=== PATIENT | female | born 1945 | race Two or more races ===

== ENCOUNTER → 2018-05-22 | Day surgery (SDC) | payer OTHER ==
[2018-05-19 12:59] LABS: Basophils # (auto) 0 uL; Basophils % (auto) 0.5 % (0.0-2.0); Eosinophils # (auto) 0.2 uL; Eosinophils % (auto) 2.1 % (0.0-7.0); Hematocrit 44.3 % (36.0-46.0); Hemoglobin 14.4 g/dL (12.2-16.2); Lymphocytes # (auto) 2.6 uL; Lymphocytes % (auto) 32.5 % (10.0-50.0); Mean Corpuscular Hemoglobin 29.8 pg (28.0-32.0); Mean Corpuscular Hgb Conc. 32.5 g/dL (32.0-36.0); Mean Corpuscular Volume 91.7 fL (80.0-100.0); Monocytes # (auto) 0.5 uL; Monocytes % (auto) 6.3 % (0.0-12.0); Neutrophils # (auto) 4.6 uL; Neutrophils % (auto) 58.6 % (37.0-80.0); Platelet Count (auto) 271 10^3/uL (140-450); Red Blood Cells 4.83 10^6/uL (4.0-5.20); Red Cell Distribution Width 13.2 % (11.8-14.3); White Blood Cell 7.9 10^3/uL (4.4-10.8)
[2018-05-19 13:12] LABS: INR 1.03 (0.9-1.15); Partial Thromboplastin Time 31.3 sec (23.78-33.04)
[~2018-05-22] VITALS: Ht 157.5 cm; Wt 81.6 kg
[~2018-05-22] MED LIST: ASPI81TA27 PO; GLIM2TAB33 PO; IBUP1POW8; LEVO25TA6 PO; LISIPOW; LOSA100T25 PO; LOVA20TA4 PO; METF-929 PO; METFORMIN; SODIUM CHLORIDE LOCK 10 ML ONE; diphenhdrAMINE HCL 50 MG/1 ML VL ONE; fentaNYL CITRATE 100 MCG/2 ML VL ONE
[2018-05-22] MEDS: MIDAZOLAM HCL 5 MG/ML-1ML VIAL ONE ×2 (09:47→09:53)
[2018-05-22 10:35] VITALS: BP 137/63
== END | disposition home or self-care (01) ==
LOC: MERGE 08:42 → GI 08:42
PROVIDERS: ATTEND Internal Medicine Gastroenterology
DX: Z12.11 Encounter for screening for malignant neoplasm of colon (principal); K57.30 Diverticulosis of large intestine without perforation or abscess without bleeding; K64.8 Other hemorrhoids; E11.9 Type 2 diabetes mellitus without complications; E66.9 Obesity, unspecified; Z88.5 Allergy status to narcotic agent; Z68.32 Body mass index [BMI] 32.0-32.9, adult; Z87.891 Personal history of nicotine dependence; Z90.49 Acquired absence of other specified parts of digestive tract; Z98.890 Other specified postprocedural states; Z79.899 Other long term (current) drug therapy
CPT/HCPCS: 36415; 45378; 82962; 85025; 85610; 85730; J1200; J2250; J3010; 99152

== ENCOUNTER → 2018-07-26 | Outpatient (CLI) | payer OTHER, MEDICAID ==
[~2018-07-26] MED LIST changes: -SODIUM CHLORIDE LOCK 10 ML ONE; -diphenhdrAMINE HCL 50 MG/1 ML VL ONE; -fentaNYL CITRATE 100 MCG/2 ML VL ONE
== END | disposition home or self-care (01) ==
LOC: LAB 20:32
PROVIDERS: ATTEND Nurse Practitioner Family
DX: N39.0 Urinary tract infection, site not specified (principal)
CPT/HCPCS: 87086

== ENCOUNTER → 2018-08-04 | Outpatient (CLI) | payer OTHER, MEDICAID ==
[2018-08-04 15:13] LABS: Urine Bacteria FEW /hpf (None Seen); Urine Blood 1+ /uL (Negative); Urine Mucus FEW (None Seen); Urine Specific Gravity 1.017 (1.001-1.035); Urine WBC 28 /hpf (0 - 5)
== END | disposition home or self-care (01) ==
LOC: LAB 14:25
PROVIDERS: ATTEND Internal Medicine
DX: E11.9 Type 2 diabetes mellitus without complications (principal)
CPT/HCPCS: 36415; 81001; 83036

== ENCOUNTER → 2018-09-10 | Outpatient (CLI) | payer OTHER, MEDICAID ==
[~2018-09-10] MED LIST changes: +ASPI-404 PO; -ASPI81TA27 PO
[2018-09-10 13:58] LABS: Urine Bacteria FEW /hpf (None Seen); Urine Blood 1+ /uL (Negative); Urine Budding Yeast OCCASIONAL /hpf (None Seen); Urine Specific Gravity 1.019 (1.001-1.035); Urine WBC 2 /hpf (0 - 5)
== END | disposition home or self-care (01) ==
LOC: LAB 13:26
PROVIDERS: ATTEND Urology
DX: N39.0 Urinary tract infection, site not specified (principal)
CPT/HCPCS: 81001; 87086

== ENCOUNTER → 2018-11-16 | Outpatient (CLI) | payer OTHER ==
[2018-11-16 12:28] LABS: Albumin 3.9 g/dL (3.4-5.0); Calcium 8.8 mg/dL (8.5-10.1); Potassium 3.9 mmol/L (3.5-5.1)
[2018-11-16 12:34] LABS: BUN/Creatinine Ratio 23.2; Bilirubin, Total 0.5 mg/dL (0.2-1.0)
== END | disposition home or self-care (01) ==
LOC: LAB 11:17
PROVIDERS: ATTEND Internal Medicine
DX: E03.9 Hypothyroidism, unspecified (principal); E11.9 Type 2 diabetes mellitus without complications
CPT/HCPCS: 36415; 80053; 83036; 84439; 84443

== ENCOUNTER 2019-03-15 17:19 | Inpatient (IN) | payer OTHER ==
[~2019-03-15] VITALS: Ht 154.9 cm; Wt 85.6 kg
[2019-03-15] MEDS ORDERED: methylPREDNISolone SOD SUCC 125 MG/2 ML VL IV ONE (17:30)
[2019-03-15] MEDS ORDERED: FAMOTIDINE 20 MG TAB PO ONE (17:30)
--- NOTE | 2019-03-15 17:32 | NUR ---
Direct Admit Note USAMA LOVE admitted to Telemetry/MS unit as a direct admit per MD order. Patient oriented to primary RN, unit, room, bed, and unit policies regarding patient care and visiting hours. Patient now on continuous telemetry monitoring, tele box # 11. Patient weighed by bedscale and encouraged to call if they need something. All questions and concerns addressed, patient verbalized understanding.
[2019-03-15 18:01] VITALS: BP 147/78
--- NOTE | 2019-03-15 18:20 | NUR ---
IV insertion IV access obtained (by resource RN), via clean sterile technique by inserting 20 gauge catheter at left forearm after 2 attempt(s). IV secured properly. No trauma to site. Patient tolerated well.
[2019-03-15] MEDS: LEVOFLOXACIN 750MG 150 ML IV SCH (18:36)
[2019-03-15] MEDS: ALBUTEROL SULF 2.5 MG/0.5ML(0.5%) NEB SOLN NEB SCH ×2 (18:43→22:01)
--- NOTE | 2019-03-15 19:05 | NUR ---
OPENING NOTE- NOC SHIFT PATIENT IS ALERT AND ORIENTED X4. NO S/SX OF DISTRESS OR SOB. PATIENT DENIES PAIN AT THIS TIME. WILL CONTINUE TO MONITOR Q1H AND PRN. DISCUSSED POC WITH PATIENT AND INSTRUCTED PATIENT TO CALL PRN; PATIENT VERBALIZED UNDERSTANDING. WILL CONTINUE TO MONITOR Q1H AND PRN.
[2019-03-15 19:12] LABS: Basophils # (auto) 0 uL; Basophils % (auto) 0.6 % (0.0-2.0); Eosinophils # (auto) 0.3 uL; Eosinophils % (auto) 3.5 % (0.0-7.0); Hematocrit 39.5 % (36.0-46.0); Hemoglobin 12.9 g/dL (12.2-16.2); Lymphocytes # (auto) 2.5 uL; Lymphocytes % (auto) 31.8 % (10.0-50.0); Mean Corpuscular Hemoglobin 29.8 pg (28.0-32.0); Mean Corpuscular Hgb Conc. 32.8 g/dL (32.0-36.0); Monocytes # (auto) 0.5 uL; Monocytes % (auto) 6.1 % (0.0-12.0); Neutrophils # (auto) 4.6 uL; Platelet Count (auto) 235 10^3/uL (140-450); Red Blood Cells 4.34 10^6/uL (4.0-5.20); Red Cell Distribution Width 12.8 % (11.8-14.3); White Blood Cell 7.9 10^3/uL (4.4-10.8)
[2019-03-15 19:24] LABS: Albumin 3.7 g/dL (3.4-5.0); Calcium 8.4 mg/dL (8.5-10.1); Potassium 3.5 mmol/L (3.5-5.1)
[2019-03-15 19:28] LABS: BUN/Creatinine Ratio 21.1; Bilirubin, Total 0.2 mg/dL (0.2-1.0); Total Protein 7.7 g/dL (6.4-8.2)
[2019-03-15] MEDS: IPRATROPIUM BROM 0.5 MG/2.5ML INH SOL NEB PRN (22:01)
[2019-03-15] MEDS: ACCU-CHEK COMFORT CURVE STRIP VI SCH (22:29)
[2019-03-15] MEDS: methylPREDNISolone SOD SUCC 40 MG/ML VL IV SCH (22:29)
[2019-03-15 23:47] VITALS: BP 154/79
[2019-03-16 01:20] VITALS: BP 154/79
[2019-03-16] MEDS: ALBUTEROL SULF 2.5 MG/0.5ML(0.5%) NEB SOLN NEB SCH ×6 (02:00→22:20)
[2019-03-16] MEDS: IPRATROPIUM BROM 0.5 MG/2.5ML INH SOL NEB PRN ×2 (03:46→11:23)
[2019-03-16 05:56] VITALS: BP 126/52
[2019-03-16] MEDS: methylPREDNISolone SOD SUCC 40 MG/ML VL IV SCH ×3 (06:46→21:30)
--- NOTE | 2019-03-16 07:32 | NUR ---
ENDORSED PATIENT CARE TO DAY SHIFT NURSE GUSTAVO PHIPPS. NO S/SX OF DISTRESS OR SOB.
[2019-03-16] MEDS ORDERED: GLIMEPIRIDE 2 MG TAB PO SCH (08:00)
--- NOTE | 2019-03-16 08:00 | NUR ---
Opening Shift Note Assumed care of patient, awake and alert. No S/S of distress/SOB or pain. Instructed on POC and to call for assist PRN, will continue to monitor for changes Q1hr and PRN.
[2019-03-16 09:00] VITALS: BP 159/86
[2019-03-16] MEDS: VALSARTAN 80 MG TAB PO SCH (09:56)
[2019-03-16] MEDS: FAMOTIDINE 20 MG TAB PO SCH (09:56)
[2019-03-16] MEDS: ACCU-CHEK COMFORT CURVE STRIP VI SCH ×2 (11:15→21:31)
[2019-03-16 13:00] VITALS: BP 128/69
[2019-03-16] MEDS: IPRATROPIUM BROM 0.5 MG/2.5ML INH SOL NEB SCH ×3 (15:10→22:20)
--- NOTE | 2019-03-16 16:27 | NUR ---
Assessment Pt is a 74 yr old alert and oriented female. Prior to admit, pt lived with , Ricardo, who is her emergency contact at [phone]. Pt ambulates with a walker but was other donahue independent with ADL's prior to admit. Pt's Primary is Dr. cisneros, has no AD on file, and gets [employer] income. Pt stated that she feels safe to d/c home with and helps take care of him. Pt's can transport home. No needs assessed. Addendum: 03/16/19 at 1632 by ISA JAIMES Amended: Links added.
[2019-03-16] MEDS: guaiFENesin-DM 100/10mg/5ml SYR PO PRN (16:31)
[2019-03-16 17:00] VITALS: BP 141/76
[2019-03-16] MEDS: metFORMIN HYDROCHLORIDE 500 MG TAB PO SCH (17:50)
[2019-03-16] MEDS: LEVOFLOXACIN 750MG 150 ML IV SCH (17:50)
[2019-03-16] MEDS: ACETYLCYSTEINE 10 %(100MG/ML) SOL 4ML NEB SCH (18:48)
[2019-03-16] MEDS: BUDESONIDE (INHALATION) 0.5 MG/2 ML NEB NEB SCH (18:48)
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
[2019-03-16 21:52] VITALS: BP 129/67
[2019-03-17] MEDS: ALBUTEROL SULF 2.5 MG/0.5ML(0.5%) NEB SOLN NEB SCH ×6 (01:07→22:06)
[2019-03-17] MEDS: IPRATROPIUM BROM 0.5 MG/2.5ML INH SOL NEB SCH ×6 (01:07→22:06)
[2019-03-17 04:58] VITALS: BP 135/88
[2019-03-17] MEDS ORDERED: ACETYLCYSTEINE 20%(200MG/ML) SOL 4ML ONE (05:36)
[2019-03-17] MEDS: ACETYLCYSTEINE 10 %(100MG/ML) SOL 4ML NEB SCH ×3 (06:02→22:06)
[2019-03-17] MEDS: methylPREDNISolone SOD SUCC 40 MG/ML VL IV SCH ×2 (06:23→18:11)
[2019-03-17] MEDS: GLIMEPIRIDE 2 MG TAB PO SCH (06:24)
--- NOTE | 2019-03-17 06:53 | NUR ---
CLOSING NOTE- NOC SHIFT PATIENT IS COMFORTABLE IN BED. NO S/SX OF DISTRESS OR SOB. PATIENT DENIES PAIN AT THIS TIME. WILL ENDORSE PATIENT CARE TO DAY SHIFT RN.
[2019-03-17] MEDS: metFORMIN HYDROCHLORIDE 500 MG TAB PO SCH ×2 (08:08→18:11)
[2019-03-17] MEDS: FAMOTIDINE 20 MG TAB PO SCH (09:22)
[2019-03-17] MEDS: VALSARTAN 80 MG TAB PO SCH (09:23)
[2019-03-17] MEDS: ACCU-CHEK COMFORT CURVE STRIP VI SCH ×2 (09:26→23:14)
[2019-03-17] MEDS: ACETAMINOPHEN 325 MG TAB PO PRN ×2 (10:16→20:06)
[2019-03-17] MEDS: BUDESONIDE (INHALATION) 0.5 MG/2 ML NEB NEB SCH ×2 (10:39→18:34)
[2019-03-17] MEDS: guaiFENesin-DM 100/10mg/5ml SYR PO PRN (12:44)
--- NOTE | 2019-03-17 12:50 | NUR ---
Patient complained of left upper chest sharp pain. EKG done. Will consult the results to Dr. Davidson.
[2019-03-17 13:00] VITALS: BP 137/66
--- NOTE | 2019-03-17 16:31 | NUR ---
Troponin-0.293, Dr. Davidson paged and returned call. Orders received.
[2019-03-17] MEDS ORDERED: ASPirin 81 mg TAB PO ONE (16:45)
[2019-03-17] MEDS: LEVOFLOXACIN 750MG 150 ML IV SCH (16:45)
--- NOTE | 2019-03-17 18:30 | NUR ---
IV removal IV infiltrated on left forearm. IV DC'd with clean sterile technique, catheter fully intact. Pressure dressing applied to site. Patient tolerated well.
--- NOTE | 2019-03-17 18:37 | NUR ---
RT NOTE PT WAS SEEN BY RT FOR HHN TX. PT TOLERATES WELL VIA MASK. NO ADVERSE REACTION NOTED. CONT ORDERED Addendum: 03/17/19 at 1838 by Skylar Moon RT Amended: Links added.
--- NOTE | 2019-03-17 18:46 | NUR ---
IV insertion IV access obtained, via clean sterile technique by inserting 20 gauge catheter at right forearm after one attempt. IV secured properly. No trauma to site. Patient tolerated well.
--- NOTE | 2019-03-17 19:30 | NUR ---
OPENING SHIFT NOTE Assumed care of patient awake and alert x4. Patient is complaining of pain to right knee due to her arthritis (pain scale 4/10), will medicate patient as ordered by MD. Instructed on plan of care and to call for assistance as needed, patient verbalized understanding. Bed is locked in lowest position, side rails x 2 are up, call light is within reach, and bed alarm is on.
[2019-03-17] MEDS: METOPROLOL TARTRATE 25 MG TAB PO SCH (21:23)
[2019-03-17] MEDS: ATORVASTATIN 20 MG TAB PO SCH (21:23)
[2019-03-17 21:51] VITALS: BP 137/73
--- NOTE | 2019-03-17 22:09 | NUR ---
RT NOTE PT WAS SEEN BY RT FOR HHN TX. PT TOLERATES WELL VIA MASK. NO ADVERSE REACTION NOTED. CONT ORDERED Addendum: 03/17/19 at 2227 by Skylar Moon RT Amended: Links added.
--- NOTE | 2019-03-18 01:53 | NUR ---
HOSPITALIST PAGED RE: CRITICAL TROPONIN LAB VALUE Hospitalist paged regarding critical troponin lab value: 0.567. Patient has a cardiology consult pending for chest pain/elevated troponin. Patient denies chest pain at this time. Awaiting call back.
--- NOTE | 2019-03-18 02:10 | NUR ---
RT NOTE PT WAS SEEN BY RT FOR HHN TX. PT TOLERATES WELL VIA MASK. NO ADVERSE REACTION NOTED. CONT ORDERED Addendum: 03/18/19 at 0222 by Skylar Moon RT Amended: Links added.
[2019-03-18] MEDS: IPRATROPIUM BROM 0.5 MG/2.5ML INH SOL NEB SCH ×6 (02:14→22:15)
[2019-03-18] MEDS: ALBUTEROL SULF 2.5 MG/0.5ML(0.5%) NEB SOLN NEB SCH ×6 (02:14→22:15)
[2019-03-18 05:00] VITALS: BP 139/69
--- NOTE | 2019-03-18 05:09 | NUR ---
HOSPITALIST RETURNED CALL RE: CRITICAL TROPONIN LAB VALUE Notified DINAH Ratliff of patient's critical troponin lab value: 0.567. DINAH Colunga aware that patient has a cardiac consult pending for chest pain and elevated troponin. No new orders received at this time.
[2019-03-18] MEDS: methylPREDNISolone SOD SUCC 40 MG/ML VL IV SCH ×2 (06:09→18:00)
[2019-03-18] MEDS: GLIMEPIRIDE 2 MG TAB PO SCH (06:09)
[2019-03-18] MEDS: guaiFENesin-DM 100/10mg/5ml SYR PO PRN (06:09)
[2019-03-18] MEDS: ACETYLCYSTEINE 10 %(100MG/ML) SOL 4ML NEB SCH ×3 (06:30→22:15)
[2019-03-18 08:00] VITALS: BP 124/60
--- NOTE | 2019-03-18 08:00 | NUR ---
ASSESSMENT NOTE PT IS ALERT ORIENTED X4, RESTING IN BED COMFORTABLY, NO DISTRESS NOTED, ABLE TO VERBALIS HER NEEDS, SELF REPOSITION NEEDED, PAIN 0/10 AT THIS TIME, CALL LIGHT WITHIN REACH
[2019-03-18] MEDS: FAMOTIDINE 20 MG TAB PO SCH (08:58)
[2019-03-18] MEDS: metFORMIN HYDROCHLORIDE 500 MG TAB PO SCH ×2 (08:58→17:50)
[2019-03-18] MEDS: ASPirin 81 mg TAB PO SCH (08:59)
[2019-03-18] MEDS: METOPROLOL TARTRATE 25 MG TAB PO SCH ×2 (08:59→22:14)
[2019-03-18] MEDS: VALSARTAN 80 MG TAB PO SCH (08:59)
[2019-03-18] MEDS: ACETAMINOPHEN 325 MG TAB PO PRN ×2 (09:00→19:53)
[2019-03-18 09:10] VITALS: BP 136/69
[2019-03-18 09:39] LABS: Basophils # (auto) 0 uL; Basophils % (auto) 0.1 % (0.0-2.0); Eosinophils # (auto) 0 uL; Eosinophils % (auto) 0.1 % (0.0-7.0); Hematocrit 39.6 % (36.0-46.0); Lymphocytes % (auto) 7.2 % (10.0-50.0); Mean Corpuscular Hemoglobin 30.3 pg (28.0-32.0); Mean Corpuscular Hgb Conc. 32.9 g/dL (32.0-36.0); Mean Corpuscular Volume 92.2 fL (80.0-100.0); Monocytes # (auto) 0.4 uL; Monocytes % (auto) 2.9 % (0.0-12.0); Neutrophils # (auto) 12.2 uL; Neutrophils % (auto) 89.7 % (37.0-80.0); Platelet Count (auto) 264 10^3/uL (140-450); Red Cell Distribution Width 13.3 % (11.8-14.3); White Blood Cell 13.6 10^3/uL (4.4-10.8)
[2019-03-18 10:00] LABS: Calcium 8.6 mg/dL (8.5-10.1); Potassium 4.2 mmol/L (3.5-5.1)
[2019-03-18] MEDS: ACCU-CHEK COMFORT CURVE STRIP VI SCH ×2 (10:00→22:12)
[2019-03-18 10:05] LABS: BUN/Creatinine Ratio 26.3
[2019-03-18] MEDS: BUDESONIDE (INHALATION) 0.5 MG/2 ML NEB NEB SCH ×2 (10:24→19:04)
--- NOTE | 2019-03-18 10:45 | NUR ---
LEONA HULL NP REGARDING TROPONIN LEVEL CRITICAL RESULTS
--- NOTE | 2019-03-18 10:48 | NUR ---
DELLA NIX CALLED BACK MADE AWARE WITH THE CRITICAL LABS OF TROPONIN LEVEL, SAID SHE WILL BE HERE SOON TO SEE PT
--- NOTE | 2019-03-18 11:00 | NUR ---
DR LUEVANO IS HERE FOLLOWING UP ON PT, AWARE OF THE TROPONIN LEVEL, AND BEHAVIORAL SERVICES TECH CARDIOLOGY WILL BE HERE SOON
[2019-03-18] MEDS ORDERED: HEPARIN DRIP/D5W 100UNITS/ML 250 ML IV SCH (12:54)
[2019-03-18] MEDS ORDERED: HEPARIN SODIUM (PORCINE) 5000 UNITS/ML 1ML VIAL IV ONE (13:00)
[2019-03-18] MEDS ORDERED: CLOPIDOGREL 300 MG TAB PO ONE (13:00)
[2019-03-18 14:07] LABS: INR 1.15 (0.9-1.15); Partial Thromboplastin Time 26.4 sec (23.64-32.05)
[2019-03-18] MEDS: HEPARIN DRIP/D5W 100UNITS/ML 250 ML IV SCH (14:49)
--- NOTE | 2019-03-18 14:49 | NUR ---
HEPARIN DRIP INITIATED PER PHARMACY PROTOCOL, NEXT PTT AT 2030
--- NOTE | 2019-03-18 15:00 | NUR ---
EMBOSSOGRAPH OPERATOR AT BED SIDE
--- NOTE | 2019-03-18 17:00 | NUR ---
FAMILY PATIENT'S DAUGHTER AT BED SIDE
[2019-03-18 17:41] VITALS: BP 152/72
[2019-03-18] MEDS: LEVOFLOXACIN 750MG 150 ML IV SCH (17:46)
--- NOTE | 2019-03-18 18:44 | NUR ---
RT NOTE RT TO SEE PT FOR HHN TX. PT EATING EVENING MEAL. RT WILL RETURN FOR HHN TX.
--- NOTE | 2019-03-18 18:46 | NUR ---
PT CONTINUE STABLE, CONTINUE MONITORING
--- NOTE | 2019-03-18 19:08 | NUR ---
RT NOTE PT WAS SEEN BY RT FOR HHN TX. PT TOLERATES WELL VIA MASK. NO ADVERSE REACTION NOTED. CONT ORDERED Addendum: 03/18/19 at 1909 by Skylar Moon RT Amended: Links added.
[2019-03-18 21:33] LABS: INR 1.23 (0.9-1.15); Partial Thromboplastin Time 34.2 sec (23.64-32.05)
--- NOTE | 2019-03-18 21:45 | NUR ---
HEPARIN DRIP CURRENT RATE IS 10.5ML/HR PTT 34.2 PER PROTOCOL BOLUS 5000U AND INCREASE RATE BY 3ML/HR. HEPARIN DRIP NOW RUNNING AT 13.5ML/HR AFTER 5000U BOLUS GIVEN. NEXT PTT ORDERED FOR 0345. SECONDARY RN JESICA WITNESS.
[2019-03-18 22:00] VITALS: BP 145/66
[2019-03-18] MEDS: ATORVASTATIN 20 MG TAB PO SCH (22:13)
--- NOTE | 2019-03-18 22:25 | NUR ---
RT NOTE PT WAS SEEN BY RT FOR HHN TX. PT TOLERATES WELL VIA MASK. NO ADVERSE REACTION NOTED. PT REQUESTS NOT TO BE AWAKENED FOR 0200 TX. GUSTAVO STEELE NOTIFIED AND WILL CALL IF PT CHANGES HER MIND OR NEEDS TX BEFORE 0600 SCHEDULED TX Addendum: 03/18/19 at 2235 by Skylar Moon RT Amended: Links added.
[2019-03-19] MEDS ORDERED: SODIUM CHLORIDE 0.9% 1,000 ML IV SCH (00:01)
[2019-03-19] MEDS: ALBUTEROL SULF 2.5 MG/0.5ML(0.5%) NEB SOLN NEB SCH ×6 (02:00→22:33)
[2019-03-19] MEDS: IPRATROPIUM BROM 0.5 MG/2.5ML INH SOL NEB SCH ×6 (02:00→22:33)
[2019-03-19 04:05] VITALS: BP 145/66
[2019-03-19 04:33] LABS: Basophils # (auto) 0 uL; Basophils % (auto) 0.1 % (0.0-2.0); Eosinophils # (auto) 0 uL; Hematocrit 38.2 % (36.0-46.0); Hemoglobin 12.7 g/dL (12.2-16.2); Lymphocytes # (auto) 1.5 uL; Mean Corpuscular Hemoglobin 30.1 pg (28.0-32.0); Mean Corpuscular Hgb Conc. 33.2 g/dL (32.0-36.0); Mean Corpuscular Volume 90.6 fL (80.0-100.0); Monocytes # (auto) 0.6 uL; Monocytes % (auto) 4.6 % (0.0-12.0); Neutrophils # (auto) 10.3 uL; Neutrophils % (auto) 83.3 % (37.0-80.0); Nucleated Red Blood Cells % 0.1 %; Platelet Count (auto) 261 10^3/uL (140-450); Red Blood Cells 4.21 10^6/uL (4.0-5.20); Red Cell Distribution Width 13.2 % (11.8-14.3); White Blood Cell 12.4 10^3/uL (4.4-10.8)
[2019-03-19 04:54] LABS: BUN/Creatinine Ratio 28.7; Calcium 8.5 mg/dL (8.5-10.1); Potassium 4.2 mmol/L (3.5-5.1)
[2019-03-19 05:00] VITALS: BP 137/67
[2019-03-19 05:03] LABS: Partial Thromboplastin Time > 139.0 sec (23.64-32.05)
--- NOTE | 2019-03-19 05:03 | NUR ---
HEPARIN DRIP PAUSED PER LAB HOLD HEPARIN DRIP FOR 30MIN AND REDRAW. CRITICAL RESULT >200, UNABLE TO RESULT PER LAB.
[2019-03-19] MEDS: methylPREDNISolone SOD SUCC 40 MG/ML VL IV SCH (06:28)
[2019-03-19] MEDS: GLIMEPIRIDE 2 MG TAB PO SCH (06:28)
[2019-03-19] MEDS: ACETYLCYSTEINE 10 %(100MG/ML) SOL 4ML NEB SCH ×3 (06:32→22:33)
[2019-03-19 06:43] LABS: INR 1.22 (0.9-1.15)
--- NOTE | 2019-03-19 06:48 | NUR ---
CRITICAL PTT PTT 135.1 HEPARIN DRIP REMAINS PAUSED. PER PROTOCOL HOLD HEPARIN FOR 1 HOUR THAN DECREASE RATE BY 3ML/HR. WILL ENDORSE TO DAY SHIFT RN. HEPARIN PAUSED AT THIS TIME.
[2019-03-19 06:49] LABS: Partial Thromboplastin Time 135.1 sec (23.64-32.05)
[2019-03-19 06:51] LABS: Urine Bacteria NONE SEEN /hpf (None Seen); Urine Blood TRACE /uL (Negative); Urine Specific Gravity 1.014 (1.001-1.035); Urine WBC <1 /hpf (0 - 5)
[2019-03-19 08:00] VITALS: BP 129/53
[2019-03-19] MEDS: metFORMIN HYDROCHLORIDE 500 MG TAB PO SCH (08:00)
[2019-03-19 08:46] VITALS: BP 129/53
[2019-03-19] MEDS ORDERED: LIDOCAINE 2%HCL (LOCAL ANESTH.) INJ 20ML MDV ONE (09:58)
[2019-03-19] MEDS ORDERED: IOHEXOL 350 MG/ML 100ML IJ ONE ×2 (09:58→10:15)
[2019-03-19] MEDS: FAMOTIDINE 20 MG TAB PO SCH (10:00)
[2019-03-19] MEDS ORDERED: VERAPAMIL 2.5MG/ML INJ 2ML VIAL IV ONE (10:00)
[2019-03-19] MEDS: METOPROLOL TARTRATE 25 MG TAB PO SCH ×2 (10:00→21:55)
[2019-03-19] MEDS ORDERED: HEPARIN SODIUM (PORCINE) 5000 UNITS/ML 1ML VIAL ONE (10:00)
[2019-03-19] MEDS ORDERED: ANGIOMAX 250 MG VIAL IV ONE (10:00)
[2019-03-19] MEDS: ASPirin 81 mg TAB PO SCH (10:00)
[2019-03-19] MEDS: VALSARTAN 80 MG TAB PO SCH (10:00)
[2019-03-19] MEDS: ACCU-CHEK COMFORT CURVE STRIP VI SCH ×2 (10:00→21:54)
[2019-03-19] MEDS ORDERED: CLOPIDOGREL BISULFATE 75 MG TAB PO SCH (10:00)
[2019-03-19] MEDS ORDERED: fentaNYL CITRATE 100 MCG/2 ML VL ONE (10:01)
[2019-03-19] MEDS ORDERED: MIDAZOLAM HCL 1MG/1ML-2 ML VIAL ONE (10:01)
[2019-03-19] MEDS: ACETAMINOPHEN 325 MG TAB PO PRN ×2 (13:02→21:54)
[2019-03-19] MEDS: HEPARIN DRIP/D5W 100UNITS/ML 250 ML IV SCH (13:34)
[2019-03-19] MEDS: BUDESONIDE (INHALATION) 0.5 MG/2 ML NEB NEB SCH ×2 (13:50→19:32)
--- NOTE | 2019-03-19 13:57 | NUR ---
NUTRITION ASSESSMENT NOTES Please refer to link notes of nutrition screen form filed under the intervention section of the plan of care for further details. Est. Needs: 1250 kcal to 1700 kcal (15-20 kcal/kgBW), 48 gms to 58 gms pro (1.0-1.2 gms/kg:BW: 48 kg). Will continue to monitor pertinent labs and reassess nutrient need prn Thank you. Addendum: 03/19/19 at [address] Amended: Links added.
[2019-03-19] MEDS ORDERED: ALBUAER3 IN (14:02)
[2019-03-19] MEDS ORDERED: IPR002IS NEB (14:02)
[2019-03-19] MEDS ORDERED: ATOR10TA52 PO (14:02)
[2019-03-19] MEDS ORDERED: ALB5IS NEB (14:02)
[2019-03-19] MEDS ORDERED: LEVO-28 PO (16:37)
[2019-03-19 16:44] VITALS: BP 132/55
[2019-03-19] MEDS ORDERED: PRED20TA2 PO (16:46)
--- NOTE | 2019-03-19 19:15 | NUR ---
Opening Shift Note Assumed care of patient, awake and alert. No S/S of distress/SOB or pain. Patient eating dinner in bed, resting comfortably. Instructed on POC and to call for assist PRN, will continue to monitor for changes Q1hr and PRN.
[2019-03-19 21:11] VITALS: BP 122/58
[2019-03-19] MEDS: ATORVASTATIN 20 MG TAB PO SCH (21:54)
[2019-03-20] MEDS: ALBUTEROL SULF 2.5 MG/0.5ML(0.5%) NEB SOLN NEB SCH ×6 (02:00→22:16)
[2019-03-20] MEDS: IPRATROPIUM BROM 0.5 MG/2.5ML INH SOL NEB SCH ×6 (02:00→22:16)
--- NOTE | 2019-03-20 02:28 | NUR ---
Respiratory note: PT REFUSING BREATHING TX AT THIS TIME AND WANTS TO SLEEP. NO RESP DISTRESS NOTED. PT REMAINS ON RA. SPO2 92%, HR 78, RR 20. PT MADE AWARE TO CALL IF SHE WANTS TX.
[2019-03-20 05:14] VITALS: BP 124/69
[2019-03-20] MEDS: GLIMEPIRIDE 2 MG TAB PO SCH (06:35)
[2019-03-20] MEDS: BUDESONIDE (INHALATION) 0.5 MG/2 ML NEB NEB SCH ×2 (06:59→18:54)
[2019-03-20] MEDS: ACETYLCYSTEINE 10 %(100MG/ML) SOL 4ML NEB SCH ×3 (07:02→22:16)
--- NOTE | 2019-03-20 07:30 | NUR ---
Opening Shift Note Assumed care of patient, awake and alert. No S/S of distress/SOB or pain. Instructed on POC and to call for assist PRN, will continue to monitor for changes Q1hr and PRN. Bed locked in lowest position with two side rails up and call light in reach.
[2019-03-20 08:00] VITALS: BP 162/88
[2019-03-20 09:00] VITALS: BP 162/88
[2019-03-20] MEDS: LEVOFLOXACIN 500 MG TAB PO SCH (10:22)
[2019-03-20] MEDS: FAMOTIDINE 20 MG TAB PO SCH (10:23)
[2019-03-20] MEDS: predniSONE 20 MG TAB PO SCH (10:23)
[2019-03-20] MEDS: ASPirin 81 mg TAB PO SCH (10:24)
[2019-03-20] MEDS: METOPROLOL TARTRATE 25 MG TAB PO SCH ×2 (10:24→21:52)
[2019-03-20] MEDS: VALSARTAN 80 MG TAB PO SCH (10:24)
[2019-03-20] MEDS: ACCU-CHEK COMFORT CURVE STRIP VI SCH ×2 (10:28→21:55)
--- NOTE | 2019-03-20 10:30 | NUR ---
Patients O2 on RA is 93-94% called classification clerk Manager Commercial Sales Bernarda to follow up on Nebulizer. per Bernarda I need to fax paper work to [facility] at [phone] and she will follow up and call me back with update.
--- NOTE | 2019-03-20 11:47 | NUR ---
PAPER WORK FAXED TO [facility] PER YESY. H/P FACE SHEET ORDER LAST PROGRESS NOTE MED REC
[2019-03-20 13:00] VITALS: BP 140/73
[2019-03-20 16:40] VITALS: BP 155/80
--- NOTE | 2019-03-20 16:50 | NUR ---
PER YESY TAKER OFF HEMP FIBER NO RESPONSE OF YET FROM FOR NEBULIZER. SHE WILL CONTACT AGAIN AND UPDATE ME TOMORROW.
--- NOTE | 2019-03-20 19:30 | NUR ---
Opening Shift Note Assumed care of patient, awake and alert. No S/S of distress/SOB or pain. Instructed on POC and to call for assist PRN, will continue to monitor for changes Q1hr and PRN. bed in low position and call light within reach
[2019-03-20] MEDS: ACETAMINOPHEN 325 MG TAB PO PRN (20:24)
[2019-03-20 21:40] VITALS: BP 133/58
[2019-03-20] MEDS: ATORVASTATIN 20 MG TAB PO SCH (21:51)
[2019-03-21] MEDS: ALBUTEROL SULF 2.5 MG/0.5ML(0.5%) NEB SOLN NEB SCH ×3 (02:00→10:37)
[2019-03-21] MEDS: IPRATROPIUM BROM 0.5 MG/2.5ML INH SOL NEB SCH ×3 (02:00→10:36)
--- NOTE | 2019-03-21 02:15 | NUR ---
PT CHECKED AND IS SLEEPING. PT REQUESTED IF FOUND SLEEPING TO NOT BE WOKEN UP FOR SCHEDULED MED NEB TX. PT IS SLEEPING WITH NO DISTRESS NOTED.
[2019-03-21 05:00] VITALS: BP 126/60
[2019-03-21] MEDS: GLIMEPIRIDE 2 MG TAB PO SCH (06:18)
--- NOTE | 2019-03-21 06:49 | NUR ---
patient is in bed sleeping bilateral chest rise and fall rr 15. shows no signs of distress or sob
[2019-03-21] MEDS: BUDESONIDE (INHALATION) 0.5 MG/2 ML NEB NEB SCH (06:58)
[2019-03-21] MEDS: ACETYLCYSTEINE 10 %(100MG/ML) SOL 4ML NEB SCH (06:58)
--- NOTE | 2019-03-21 07:12 | NUR ---
REPORT GIVEN TO DAYSHIFT RN PATIENT DENIES SOB DISTRESS OR PAIN. DRESSING C/D/I
--- NOTE | 2019-03-21 07:20 | NUR ---
Opening Shift Note Assumed care of patient, awake and alert. No S/S of distress/SOB or pain. Instructed on POC and to call for assist PRN, will continue to monitor for changes Q1hr and PRN. Bed locked in lowest position with two side rail up and call light in reach.
[2019-03-21 08:00] VITALS: BP 134/62
[2019-03-21 09:10] VITALS: BP 134/62
[2019-03-21] MEDS: predniSONE 20 MG TAB PO SCH (09:49)
[2019-03-21] MEDS: ASPirin 81 mg TAB PO SCH (09:49)
[2019-03-21] MEDS: VALSARTAN 80 MG TAB PO SCH (09:50)
[2019-03-21] MEDS: LEVOFLOXACIN 500 MG TAB PO SCH (09:50)
[2019-03-21] MEDS: ACCU-CHEK COMFORT CURVE STRIP VI SCH (09:51)
[2019-03-21] MEDS: METOPROLOL TARTRATE 25 MG TAB PO SCH (09:51)
[2019-03-21] MEDS: FAMOTIDINE 20 MG TAB PO SCH (09:51)
--- NOTE | 2019-03-21 11:08 | NUR ---
PER DR DIOR IT IS OK FOR PATIENT TO BE DISCHARGED WITHOUT NEBULIZER. NEBULIZER WILL BE SET UP OUTPATIENT, MANAGER HRIS YESY WORKING ON IT AND WILL CONTINUE TO WORK ON IT TOMORROW Friday03/22/2019.
--- NOTE | 2019-03-21 11:09 | NUR ---
Discharge instructions given as ordered. Encourage to follow up with PMD as instructed. All questions and concerns addressed. Patient verbalized understanding. Medication reconciliation form completed and copy given to patient. No Home medications held in Pharmacy and none to be returned to patient, and no needed vaccines given. IV removed with catheter intact, pressure dressing applied. Telemetry unit returned to ICU. Patient taken to vehicle via wheelchair with all personal belongings, accompanied by staff and family member. No distress noted at time of departure.
--- NOTE | 2019-03-22 14:54 | NUR ---
D/C Planning Hog Pusher, Received page from GUSTAVO Anderson regarding order for Nebulizer. Advised her to fax to [facility] Fax:). Placed Followed up called to [facility] MOHS SURGEON Ph:) at 11:00, 13:00 and 16:00 on Friday03/20/2019 to provided verbal authorization however, no one answer I left message and no one return my call. Received followed up called from GUSTAVO Anderson on Friday stating patient will discharge patient home and for Nebulizer to be deliver to patient home. Re-fax orders to [facility]. Placed followed up called to [facility] at 8:30 am this morning 03/22/19 spoke, to Jessenia. Per Jessenia they will be delivering nebulizer to patient home. Order was approved by CLAYTON Garcia. Faxed orders to [facility] Fax:( [phone]).
== END 2019-03-21 11:15 | disposition home or self-care (01) | DRG 193 ==
LOC: TELE-DOU 17:19 → TELE-EAST 18:01
PROVIDERS: ADMIT Internal Medicine; ATTEND Internal Medicine
PROC: 4A023N7 Measurement of Cardiac Sampling and Pressure, Left Heart, Percutaneous Approach (ICD-10-PCS; principal; 2019-03-19)
PROC: B2111ZZ Fluoroscopy of Multiple Coronary Arteries using Low Osmolar Contrast (ICD-10-PCS; 2019-03-19)
PROC: B2151ZZ Fluoroscopy of Left Heart using Low Osmolar Contrast (ICD-10-PCS; 2019-03-19)
DX: J18.9 Pneumonia, unspecified organism (principal); J96.00 Acute respiratory failure, unspecified whether with hypoxia or hypercapnia; I21.A1 Myocardial infarction type 2; J44.1 Chronic obstructive pulmonary disease with (acute) exacerbation; J44.0 Chronic obstructive pulmonary disease with (acute) lower respiratory infection; E11.9 Type 2 diabetes mellitus without complications; I10 Essential (primary) hypertension; E66.01 Morbid (severe) obesity due to excess calories; T38.0X5A Adverse effect of glucocorticoids and synthetic analogues, initial encounter; E78.00 Pure hypercholesterolemia, unspecified; J20.9 Acute bronchitis, unspecified; E11.65 Type 2 diabetes mellitus with hyperglycemia; E78.5 Hyperlipidemia, unspecified; E03.9 Hypothyroidism, unspecified; Z87.891 Personal history of nicotine dependence; Z83.3 Family history of diabetes mellitus; Z82.49 Family history of ischemic heart disease and other diseases of the circulatory system; Z88.5 Allergy status to narcotic agent; Z88.0 Allergy status to penicillin; Z79.84 Long term (current) use of oral hypoglycemic drugs; Z79.899 Other long term (current) drug therapy; Z79.82 Long term (current) use of aspirin; Z68.35 Body mass index [BMI] 35.0-35.9, adult; Y92.89 Other specified places as the place of occurrence of the external cause
CPT/HCPCS: 36415; 71046; 80048; 80053; 81001; 82565; 82962; 83735; 83880; 84484; 85025; 85610; 85730; 93306; 93458; 94640; 99152; 99153; G0378; J1956; J2250

== ENCOUNTER → 2019-06-28 | Outpatient (CLI) | payer OTHER, MEDICAID ==
[~2019-06-28] MED LIST changes: +ALB5IS NEB; +ALBUAER3 IN; +ALBUTEROL SULF 2.5 MG/0.5ML(0.5%) NEB SOLN ONE; +ATOR10TA52 PO; -IBUP1POW8; +IPR002IS NEB; +LEVO-28 PO; +PRED20TA2 PO
== END | disposition home or self-care (01) ==
LOC: RT 08:34
PROVIDERS: ATTEND Internal Medicine
DX: J40 Bronchitis, not specified as acute or chronic (principal)
CPT/HCPCS: 94060

== ENCOUNTER → 2019-09-02 | Outpatient (CLI) | payer OTHER ==
[~2019-09-02] MED LIST changes: -ALBUTEROL SULF 2.5 MG/0.5ML(0.5%) NEB SOLN ONE; -ASPI-404 PO; +ASPI-543 PO
[2019-09-02 11:29] LABS: Basophils # (auto) 0 10 ^3/uL (0-0.2); Basophils % (auto) 0.7 % (0.0-2.0); Eosinophils # (auto) 0.2 10 ^3/uL (0-0.8); Eosinophils % (auto) 2.8 % (0.0-7.0); Hematocrit 40.8 % (36.0-46.0); Hemoglobin 13.3 g/dL (12.2-16.2); Lymphocytes # (auto) 2.4 10 ^3/uL (0.4-5.4); Lymphocytes % (auto) 33.1 % (10.0-50.0); Mean Corpuscular Hemoglobin 29.6 pg (28.0-32.0); Mean Corpuscular Hgb Conc. 32.6 g/dL (32.0-36.0); Monocytes # (auto) 0.4 10 ^3/uL (0-1.3); Monocytes % (auto) 4.9 % (0.0-12.0); Neutrophils # (auto) 4.2 10 ^3/uL (1.6-8.6); Neutrophils % (auto) 58.5 % (37.0-80.0); Nucleated Red Blood Cells % 0.1 %; Platelet Count (auto) 244 10^3/uL (140-450); Red Blood Cells 4.49 10^6/uL (4.0-5.20); Red Cell Distribution Width 13.1 % (11.8-14.3); White Blood Cell 7.2 10^3/uL (4.4-10.8)
[2019-09-02 11:52] LABS: Urine Bacteria NONE SEEN /hpf (None Seen); Urine Blood 1+ /uL (Negative); Urine Specific Gravity 1.015 (1.001-1.035); Urine WBC 1 /hpf (0 - 5)
[2019-09-02 11:56] LABS: Albumin 3.9 g/dL (3.4-5.0); Potassium 3.7 mmol/L (3.5-5.1)
[2019-09-02 12:03] LABS: BUN/Creatinine Ratio 22.7; Bilirubin, Total 0.5 mg/dL (0.2-1.0); Total Protein 7.8 g/dL (6.4-8.2); Uric Acid 6.6 mg/dL (2.6-6.0)
== END | disposition home or self-care (01) ==
LOC: LAB 10:44
PROVIDERS: ATTEND Internal Medicine
DX: E11.9 Type 2 diabetes mellitus without complications (principal); I10 Essential (primary) hypertension
CPT/HCPCS: 36415; 80053; 80061; 81001; 82043; 83036; 84439; 84443; 84550; 85025; 85652; 86200; 86431

== ENCOUNTER → 2019-11-11 | Outpatient (CLI) | payer OTHER ==
[2019-11-11 13:03] LABS: Urine WBC None Seen /hpf (0 - 5)
[2019-11-11 13:10] LABS: Urine Bacteria FEW /hpf (None Seen); Urine Blood TRACE /uL (Negative); Urine Hyaline Cast MOD /lpf (0 - 2); Urine Mucus FEW (None Seen); Urine Specific Gravity 1.014 (1.001-1.035)
[2019-11-11 13:13] LABS: Basophils # (auto) 0 10 ^3/uL (0-0.2); Basophils % (auto) 0.4 % (0.0-2.0); Eosinophils # (auto) 0.2 10 ^3/uL (0-0.8); Eosinophils % (auto) 1.6 % (0.0-7.0); Hematocrit 42.5 % (36.0-46.0); Hemoglobin 13.9 g/dL (12.2-16.2); Mean Corpuscular Hemoglobin 29.7 pg (28.0-32.0); Mean Corpuscular Hgb Conc. 32.8 g/dL (32.0-36.0); Mean Corpuscular Volume 90.5 fL (80.0-100.0); Monocytes # (auto) 0.5 10 ^3/uL (0-1.3); Monocytes % (auto) 5.1 % (0.0-12.0); Neutrophils # (auto) 6.6 10 ^3/uL (1.6-8.6); Neutrophils % (auto) 63.9 % (37.0-80.0); Nucleated Red Blood Cells % 0.1 %; Platelet Count (auto) 306 10^3/uL (140-450); Red Cell Distribution Width 12.9 % (11.8-14.3); White Blood Cell 10.3 10^3/uL (4.4-10.8)
[2019-11-11 13:50] LABS: Albumin 4.2 g/dL (3.4-5.0); Calcium 9.4 mg/dL (8.5-10.1); Potassium 4.1 mmol/L (3.5-5.1)
[2019-11-11 13:55] LABS: BUN/Creatinine Ratio 21.6; Bilirubin, Total 0.5 mg/dL (0.2-1.0)
== END | disposition home or self-care (01) ==
LOC: LAB 12:46
PROVIDERS: ATTEND Internal Medicine
DX: E11.42 Type 2 diabetes mellitus with diabetic polyneuropathy (principal); R42 Dizziness and giddiness
CPT/HCPCS: 36415; 80053; 81001; 82550; 84439; 84443; 85025; 85652

== ENCOUNTER 2019-12-25 13:19 | Inpatient (IN) | payer OTHER ==
[~2019-12-25] VITALS: Ht 154.9 cm; Wt 79.9 kg
[2019-12-25] MEDS ORDERED: AZITHROMYCIN 500MG/ 250ML 250 ML IV ONE (14:45)
[2019-12-25] MEDS ORDERED: ZINC SULFATE 220mg CAP or TAB PO ONE (14:45)
[2019-12-25] MEDS ORDERED: DexAMETHasone 4 MG TAB PO ONE (14:45)
[2019-12-25] MEDS ORDERED: SODIUM CHLORIDE 0.9% 1,000 ML IVB ONE (14:45)
[2019-12-25] MEDS ORDERED: ASCORBIC ACID 500 MG TAB PO ONE (14:45)
[2019-12-25 16:30] LABS: Basophils # (auto) 0 10 ^3/uL (0-0.2); Basophils % (auto) 0.9 % (0.0-2.0); Eosinophils # (auto) 0 10 ^3/uL (0-0.8); Eosinophils % (auto) 0.7 % (0.0-7.0); Hematocrit 43.2 % (36.0-46.0); Hemoglobin 14.4 g/dL (12.2-16.2); Lymphocytes # (auto) 1.2 10 ^3/uL (0.4-5.4); Lymphocytes % (auto) 35.7 % (10.0-50.0); Mean Corpuscular Hemoglobin 31.1 pg (28.0-32.0); Mean Corpuscular Hgb Conc. 33.3 g/dL (32.0-36.0); Mean Corpuscular Volume 93.4 fL (80.0-100.0); Monocytes # (auto) 0.4 10 ^3/uL (0-1.3); Monocytes % (auto) 10.5 % (0.0-12.0); Neutrophils # (auto) 1.8 10 ^3/uL (1.6-8.6); Neutrophils % (auto) 52.2 % (37.0-80.0); Nucleated Red Blood Cells % 0.1 %; Platelet Count (auto) 128 10^3/uL (140-450); Red Blood Cells 4.62 10^6/uL (4.0-5.20); Red Cell Distribution Width 14.3 % (11.8-14.3); White Blood Cell 3.4 10^3/uL (4.4-10.8)
[2019-12-25 16:47] LABS: INR 1.09 (0.9-1.15); Partial Thromboplastin Time 33.1 sec (23.0-31.2)
[2019-12-25 16:48] LABS: Albumin 3.1 g/dL (3.4-5.0); Calcium 7.9 mg/dL (8.5-10.1); Magnesium 2.2 mg/dL (1.6-2.6); Potassium 4.3 mmol/L (3.5-5.1)
[2019-12-25 16:51] LABS: BUN/Creatinine Ratio 21.3; Bilirubin, Total 0.3 mg/dL (0.2-1.0); Total Protein 7.5 g/dL (6.4-8.2)
[2019-12-25] MEDS ORDERED: ONDANSETRON HCL 4 MG/2 ML VIAL IV PRN (17:45)
[2019-12-25] MEDS ORDERED: NITROGLYCERIN 0.4 MG SL TAB SL PRN (17:45)
[2019-12-25] MEDS ORDERED: HYDROcodone-ACET 5/325MG TAB PO PRN (17:45)
[2019-12-25] MEDS ORDERED: DEXTROSE (50%) 50ML SYRG IV PRN (17:45)
[2019-12-25] MEDS ORDERED: MORPHINE SULF INJ 2 MG/ML SYRINGE 1ML IV PRN ×2 (17:45)
[2019-12-25] MEDS ORDERED: FAMOTIDINE 20 MG TAB PO SCH (18:30)
[2019-12-25] MEDS: ACETAMINOPHEN 500 MG TAB PO PRN (18:44)
[2019-12-25 19:50] LABS: CRP High Sensitivity 6.64 mg/dL (< 0.3)
[2019-12-25 20:33] VITALS: BP 100/56
[2019-12-25 20:53] VITALS: BP 119/57
--- NOTE | 2019-12-25 20:53 | NUR ---
Telemetry admit from ER USAMA LOVE admitted to Telemetry unit after SBAR received. Patient oriented to MARGIE SALAMANCA, RN primary RN, unit, room, bed, and unit policies regarding patient care and visiting hours. Patient now on continuous telemetry monitoring, tele box # 3 and telemetry reading on arrival to unit is SR 80bpm. Patient placed on bedside oxygen, weighed by bedscale and encouraged to call if they need something. All questions and concerns addressed, patient verbalized understanding.
[2019-12-25] MEDS: DOXYCYCLINE 100MG/250ML 250 ML IV SCH (21:24)
[2019-12-25 21:32] LABS: Urine Bacteria FEW /hpf (None Seen); Urine Blood Negative /uL (Negative); Urine Mucus FEW (None Seen); Urine Specific Gravity 1.016 (1.001-1.035); Urine WBC 23 /hpf (0 - 5)
--- NOTE | 2019-12-25 21:39 | NUR ---
home medications per patient she will provide ist of home medication tomorrow. will endorse care to dayshift rn
[2019-12-25] MEDS: ACCU-CHEK COMFORT CURVE STRIP VI SCH (21:51)
[2019-12-25] MEDS: InsuLIN REG 1unit/0.01ml Soln (100units/ml) SC SCH (21:51)
--- NOTE | 2019-12-25 21:51 | NUR ---
Patient educated on how to use Incentive spirometer patient verbalized understanding
[2019-12-25] MEDS: BUDESONIDE (INHALATION) 180 MCG IH IN SCH (22:28)
[2019-12-25] MEDS: ALBUTEROL SULF HFA 90MCG INH 200DOSE IN SCH (22:28)
[2019-12-26 05:00] VITALS: BP 105/48
--- NOTE | 2019-12-26 06:05 | NUR ---
BS check 414 BS recheck 381
[2019-12-26] MEDS: InsuLIN REG 1unit/0.01ml Soln (100units/ml) SC SCH ×4 (06:08→21:38)
[2019-12-26] MEDS: ACCU-CHEK COMFORT CURVE STRIP VI SCH ×4 (06:09→21:38)
--- NOTE | 2019-12-26 06:10 | NUR ---
patient rounds patient resting in bed denies sob distress or pain. iv is intact and patent. call light within reach and bed in low position
[2019-12-26] MEDS: ALBUTEROL SULF HFA 90MCG INH 200DOSE IN SCH ×3 (06:17→21:37)
[2019-12-26] MEDS: BUDESONIDE (INHALATION) 180 MCG IH IN SCH ×2 (06:17→21:37)
[2019-12-26 06:34] LABS: Basophils # (auto) 0 10 ^3/uL (0-0.2); Basophils % (auto) 0.1 % (0.0-2.0); Eosinophils # (auto) 0 10 ^3/uL (0-0.8); Hematocrit 37.5 % (36.0-46.0); Hemoglobin 12.1 g/dL (12.2-16.2); Lymphocytes # (auto) 0.9 10 ^3/uL (0.4-5.4); Lymphocytes % (auto) 22.2 % (10.0-50.0); Mean Corpuscular Hemoglobin 29.4 pg (28.0-32.0); Mean Corpuscular Hgb Conc. 32.2 g/dL (32.0-36.0); Mean Corpuscular Volume 91.3 fL (80.0-100.0); Monocytes # (auto) 0.2 10 ^3/uL (0-1.3); Monocytes % (auto) 5.4 % (0.0-12.0); Neutrophils # (auto) 2.9 10 ^3/uL (1.6-8.6); Neutrophils % (auto) 72.3 % (37.0-80.0); Platelet Count (auto) 179 10^3/uL (140-450); Red Blood Cells 4.11 10^6/uL (4.0-5.20); Red Cell Distribution Width 13.4 % (11.8-14.3)
[2019-12-26 06:56] LABS: Potassium 3.6 mmol/L (3.5-5.1)
[2019-12-26 07:04] LABS: BUN/Creatinine Ratio 26.5; Bilirubin, Total 0.3 mg/dL (0.2-1.0); Calcium 7.8 mg/dL (8.5-10.1)
--- NOTE | 2019-12-26 07:05 | NUR ---
REPORT GIVEN TO DAYSHIFT RN PATIENT DENIES SOB DISTRESS OR PAIN
[2019-12-26 09:00] VITALS: BP 123/62
[2019-12-26] MEDS ORDERED: FAMOTIDINE 20 MG TAB PO SCH (10:00)
[2019-12-26] MEDS: DexAMETHasone SOD PHOS 10MG/1ML VIAL INJ IV SCH (10:03)
[2019-12-26] MEDS: FAMOTIDINE 20 MG TAB PO SCH (10:03)
[2019-12-26] MEDS: CHOLECALCIFEROL (VITD3) 2,000 UNIT CAP PO SCH (10:03)
[2019-12-26] MEDS: ZINC SULFATE 220mg CAP or TAB PO SCH (10:03)
[2019-12-26] MEDS: ASCORBIC ACID 1,000 MG TAB PO SCH (10:03)
[2019-12-26] MEDS: DOXYCYCLINE 100MG/250ML 250 ML IV SCH ×2 (10:03→21:37)
[2019-12-26] MEDS: ENOXAPARIN SOD 40 MG/0.4 ML SYRINGE SC SCH (10:04)
[2019-12-26] MEDS ORDERED: DEXTROSE (50%) 50ML SYRG IV PRN (11:30)
[2019-12-26] MEDS: INSULIN LANTUS (GLARGINE) 1 /0.01ml (100units/ml) SC SCH (12:31)
[2019-12-26 13:00] VITALS: BP 128/71
--- NOTE | 2019-12-26 19:50 | NUR ---
Opening Shift Note Assumed care of patient, awake and alert. No S/S of distress/SOB or pain. Instructed on POC and to call for assist PRN, will continue to monitor for changes Q1hr and PRN.
--- NOTE | 2019-12-26 19:55 | NUR ---
RAC IV removal IV leaking. IV DC'd with clean sterile technique, catheter fully intact. Pressure dressing applied to site. Patient tolerated well.
[2019-12-26 20:00] VITALS: BP 107/43
--- NOTE | 2019-12-26 20:00 | NUR ---
IV Refusal Attempted IV insertion once but was unsuccessful. Patient denied further tries. Educated patient on the need for IV but still refused.
[2019-12-26 21:31] LABS: Basophils # (auto) 0 10 ^3/uL (0-0.2); Basophils % (auto) 0.2 % (0.0-2.0); Eosinophils # (auto) 0 10 ^3/uL (0-0.8); Hemoglobin 11.9 g/dL (12.2-16.2); Mean Corpuscular Hgb Conc. 33.1 g/dL (32.0-36.0); Mean Corpuscular Volume 90.7 fL (80.0-100.0); Monocytes # (auto) 0.4 10 ^3/uL (0-1.3); Monocytes % (auto) 3.7 % (0.0-12.0); Neutrophils # (auto) 8.9 10 ^3/uL (1.6-8.6); Neutrophils % (auto) 86.1 % (37.0-80.0); Nucleated Red Blood Cells % 0.1 %; Platelet Count (auto) 189 10^3/uL (140-450); Red Blood Cells 3.97 10^6/uL (4.0-5.20); Red Cell Distribution Width 13.5 % (11.8-14.3); White Blood Cell 10.3 10^3/uL (4.4-10.8)
[2019-12-26] MEDS: ACETAMINOPHEN 500 MG TAB PO PRN (21:37)
[2019-12-26 22:00] VITALS: BP 107/43
[2019-12-27 05:00] VITALS: BP 134/68
[2019-12-27] MEDS: INSULIN LANTUS (GLARGINE) 1 /0.01ml (100units/ml) SC SCH (06:17)
[2019-12-27] MEDS: ACCU-CHEK COMFORT CURVE STRIP VI SCH ×4 (06:17→22:01)
[2019-12-27] MEDS: InsuLIN REG 1unit/0.01ml Soln (100units/ml) SC SCH ×4 (06:17→22:01)
[2019-12-27] MEDS: ALBUTEROL SULF HFA 90MCG INH 200DOSE IN SCH ×3 (06:52→21:51)
[2019-12-27] MEDS: BUDESONIDE (INHALATION) 180 MCG IH IN SCH ×2 (06:52→21:51)
--- NOTE | 2019-12-27 07:30 | NUR ---
OPENING NOTE ASSUMED CARE OF PT. ALERT AND ORIENTED. NO S/S OF SOB/DISTRESS NOTED. BED SET TO LOWEST POSITION/LOCKED. BEDSIDE RAILS UP X2, CALL LIGHT WITHIN REACH. INSTRUCTED PT TO CALL FOR ASSISTANCE. UPDATED ON POC. PT VERBALIZED UNDERSTANDING. WILL CONTINUE TO MONITOR Q 1HR AND PRN FOR CHANGES.
[2019-12-27 09:00] VITALS: BP 149/68
[2019-12-27] MEDS: DexAMETHasone SOD PHOS 10MG/1ML VIAL INJ IV SCH (09:39)
[2019-12-27] MEDS: DOXYCYCLINE 100MG/250ML 250 ML IV SCH ×2 (09:39→22:01)
[2019-12-27] MEDS: CHOLECALCIFEROL (VITD3) 2,000 UNIT CAP PO SCH (09:40)
[2019-12-27] MEDS: ASCORBIC ACID 1,000 MG TAB PO SCH (09:40)
[2019-12-27] MEDS: ZINC SULFATE 220mg CAP or TAB PO SCH (09:40)
[2019-12-27] MEDS: ENOXAPARIN SOD 40 MG/0.4 ML SYRINGE SC SCH (09:40)
[2019-12-27] MEDS: ACETAMINOPHEN 500 MG TAB PO PRN ×2 (09:41→18:51)
[2019-12-27] MEDS ORDERED: INSULIN LANTUS (GLARGINE) 1 /0.01ml (100units/ml) SC ONE (10:15)
[2019-12-27 13:00] VITALS: BP 136/73
--- NOTE | 2019-12-27 13:30 | NUR ---
SPO2 PATIENT O2 SATURATION 87% ON ROOM AIR UPON AMBULATION. DR. ROBBINS NOTIFIED. PER MD HOLD DISCHARGE. WILL CONTINUE TO MONITOR.
--- NOTE | 2019-12-27 15:25 | NUR ---
Respiratory note: ABG NOT DONE, PATIENT REFUSED AFTER ATTEMPTING TO DRAW ABG. PT ASKED ME TO STOP AND STATED SHE DID NOT WANT IT DONE AT THIS TIME.
--- NOTE | 2019-12-27 16:48 | NUR ---
Respiratory note: SPOKE WITH GUSTAVO LING AND INFORMED HER OF PT REFUSING ABG.
[2019-12-27 17:00] VITALS: BP 120/66
--- NOTE | 2019-12-27 18:48 | NUR ---
TEMP PATIENT TEMP IS 103.1, COOLING MEASURES APPLIED, MEDICATION ADMINISTER PER MD ORDERS. WILL CONTINUE TO MONITOR.
--- NOTE | 2019-12-27 19:55 | NUR ---
Opening Shift Note Assumed care of patient, awake and alert. No S/S of distress/SOB or pain. Instructed on POC and to call for assist PRN, will continue to monitor for changes Q1hr and PRN. Temperature reassess: 99.8
[2019-12-27 20:00] VITALS: BP 101/50
--- NOTE | 2019-12-27 21:10 | NUR ---
Sleeping Pill Patient ask for a sleeping. Paged hospitalist Keanu hospitalist ordered Restoril 15 mg Po once, repeated orders to verified.
[2019-12-27] MEDS ORDERED: TEMAZEPAM 15 MG CAP PO ONE (21:15)
[2019-12-27 22:00] VITALS: BP 101/50
[2019-12-27] MEDS: INSULIN 70/30 1unit/0.01ml Susp (100units/ml) SC SCH (22:02)
[2019-12-28] VITALS (7 sets, daily range): BP systolic 99–144; BP diastolic 50–86
[2019-12-28] MEDS: ACETAMINOPHEN 500 MG TAB PO PRN ×3 (04:07→21:21)
--- NOTE | 2019-12-28 04:07 | NUR ---
Temperature Patient's temperature of 101.4. Tylenol given and cooling measure taken, will continue to monitor.
[2019-12-28] MEDS: InsuLIN REG 1unit/0.01ml Soln (100units/ml) SC SCH ×4 (06:24→21:21)
[2019-12-28] MEDS: ACCU-CHEK COMFORT CURVE STRIP VI SCH ×4 (06:24→21:21)
[2019-12-28] MEDS: ALBUTEROL SULF HFA 90MCG INH 200DOSE IN SCH ×3 (07:30→22:20)
[2019-12-28] MEDS: BUDESONIDE (INHALATION) 180 MCG IH IN SCH ×2 (07:30→22:20)
--- NOTE | 2019-12-28 07:35 | NUR ---
opening note Assumed care of patient from NOC RN Luna. No s/s of distress noted. Bed is in lowest locked position, call light is within reach and side rails up x2. Updated patient on plan of care and patient verbalized understanding. Will continue to monitor q1hr and PRN.
--- NOTE | 2019-12-28 08:23 | NUR ---
BLOOD BANK Received call from blood bank. Per blood bank patient has convalescent plasma ready and pending thawing out. Informed them that per NOC shift patient did not sign consents for plasma and stated that she has not spoken to a doctor regarding plasma. Will confirm with patient.
--- NOTE | 2019-12-28 08:45 | NUR ---
plasma Informed patient that convalescent plasma is pending, patient stated " I do not want that, no doctor talked to me about that. I didn't sign anything either, I do not want no plasma." Informed patient regarding treatment, risks and benefits, informed patient that doctor will be notified to further explain treatment, patient verbalized understanding. No consents noted in patient hard chart as well.
[2019-12-28] MEDS: INSULIN 70/30 1unit/0.01ml Susp (100units/ml) SC SCH ×2 (10:00→21:22)
[2019-12-28] MEDS: DOXYCYCLINE 100MG/250ML 250 ML IV SCH ×2 (11:02→21:21)
[2019-12-28] MEDS: FAMOTIDINE 20 MG TAB PO SCH (11:02)
[2019-12-28] MEDS: DexAMETHasone SOD PHOS 10MG/1ML VIAL INJ IV SCH (11:02)
[2019-12-28] MEDS: ASCORBIC ACID 1,000 MG TAB PO SCH (11:03)
[2019-12-28] MEDS: ZINC SULFATE 220mg CAP or TAB PO SCH (11:03)
[2019-12-28] MEDS: ENOXAPARIN SOD 40 MG/0.4 ML SYRINGE SC SCH ×2 (11:06→21:21)
[2019-12-28] MEDS: CHOLECALCIFEROL (VITD3) 2,000 UNIT CAP PO SCH (11:25)
--- NOTE | 2019-12-28 12:10 | NUR ---
physician rounding Dr. Gaona at bedside. MD updated patient on plan of care and patient verbalized understanding. MD educated patient regarding convalescent plasma and remdesivir. Patient verbalized refusal regarding both treatments.
--- NOTE | 2019-12-28 12:58 | NUR ---
called MD Called dr. jones regarding patients elevated heart rate. Patients heart rate in 110-160s, patient not sustaining an even pace. Patient is asymptomatic. Vitals are 128/51, 94%, 100.6. Per MD do EKG.
--- NOTE | 2019-12-28 13:26 | NUR ---
Per MD Patient is to be monitored, and per MD jones he will consult Dr. Avila.
[2019-12-28] MEDS ORDERED: FUROSEMIDE 40 MG/4 ML VIAL IV ONE (13:30)
--- NOTE | 2019-12-28 14:24 | NUR ---
Called MD Called Dr. Gaona,. Vitals are 111/68, 96%, and 18 rr. Heart rate is 140s-150s with occasional beasts in 170s. MD Aware no new orders.
[2019-12-28] MEDS ORDERED: ADENOSINE 6 MG/2 ML INJ IV ONE ×2 (14:45)
--- NOTE | 2019-12-28 14:45 | NUR ---
Provider rounding ICE RINK ATTENDANT Norma Horn at nurses station. New orders received. Will follow through.
--- NOTE | 2019-12-28 15:00 | NUR ---
Adenosine radha Garcia RN was present at bedside. Adenosine 6 mg administered via IV, followed by 20ml saline flush. Patient did not convert and was followed with 12 mg dose, and 20ml flush. Patient did not convert to NSR. New orders received for medical treatment. Will follow through.
[2019-12-28] MEDS ORDERED: METOPROLOL SUCCINATE XL 50 MG TAB PO ONE (15:15)
--- NOTE | 2019-12-28 15:21 | NUR ---
vitals post ademosine 128/92, 91%. 156bpm, 98.0, 19rr. No s/s of distress noted, patient is AOX4.
[2019-12-28] MEDS ORDERED: AMIODARONE HCL 150 MG in D5W 5% 100 ML IV ONE (15:30)
[2019-12-28] MEDS ORDERED: AMIODARONE 450mg/250ml AE 250 ML IV SCH (15:30)
[2019-12-28] MEDS ORDERED: SODIUM CHLORIDE 0.9% 500 ML IV ONE (15:30)
[2019-12-28] MEDS ORDERED: dilTIAZem 120MG ER CAP PO ONE (15:30)
[2019-12-28 15:47] LABS: Basophils # (auto) 0 10 ^3/uL (0-0.2); Basophils % (auto) 0.1 % (0.0-2.0); Eosinophils # (auto) 0 10 ^3/uL (0-0.8); Hematocrit 34.6 % (36.0-46.0); Hemoglobin 11.5 g/dL (12.2-16.2); Lymphocytes # (auto) 0.5 10 ^3/uL (0.4-5.4); Lymphocytes % (auto) 3.4 % (10.0-50.0); Mean Corpuscular Hemoglobin 29.7 pg (28.0-32.0); Mean Corpuscular Hgb Conc. 33.2 g/dL (32.0-36.0); Mean Corpuscular Volume 89.6 fL (80.0-100.0); Monocytes # (auto) 0.3 10 ^3/uL (0-1.3); Monocytes % (auto) 1.8 % (0.0-12.0); Neutrophils % (auto) 94.7 % (37.0-80.0); Platelet Count (auto) 207 10^3/uL (140-450); Red Blood Cells 3.86 10^6/uL (4.0-5.20); Red Cell Distribution Width 13.7 % (11.8-14.3); White Blood Cell 13.8 10^3/uL (4.4-10.8)
[2019-12-28 16:08] LABS: BUN/Creatinine Ratio 22.3; Calcium 7.3 mg/dL (8.5-10.1); Magnesium 1.7 mg/dL (1.6-2.6); Potassium 3.1 mmol/L (3.5-5.1)
--- NOTE | 2019-12-28 16:45 | NUR ---
SS consult for home oxygen. Faxed clinical information to [employer] for oxygen delivery. Portable tank to be delivered to the bedside and concentrator to the home. Faxed clinical information to [employer] for generation of hard copy auth. Provided temporary auth of [id number]. Pt returning home with her spouse and will have transportation home upon discharge. Addendum: 12/28/19 at 1653 by KARI DANGELO Amended: Links added.
--- NOTE | 2019-12-28 17:15 | NUR ---
page placed page to Dr. Avila awaiting call back.
--- NOTE | 2019-12-28 17:18 | NUR ---
CALL BACK Received call back, informed Dr. Avila of patients heart rate is now stable in NSR 80s- 90bpms. Blood pressure is decreased at 97/55. Per MD hold on Cordarone drip, and order for PO Amiodarone BID and to continue to monitor. Will follow through. Addendum: 12/28/19 at 1815 by CALI GUSTAFSON RN PER MD IF B/P DROPS HOLD METOPROLOL AND GIVE CODARONE PO.
--- NOTE | 2019-12-28 18:56 | NUR ---
oxygen tank O2 was delivered to home and to bedside.
--- NOTE | 2019-12-28 18:57 | NUR ---
received call from family Received call from Tonya, patients daughter. Per Tonya, patients has been readmitted to the hospital, and not to inform patient regarding this status. Tonya stated "Anuj Dobson is patients , and he will want to stay with the patient in the same room, i do not want them together because he will stress her out. Do not tell her he is here and do not tell him where she is located in the hospital."
--- NOTE | 2019-12-28 19:17 | NUR ---
end of shift note Endorsed care to NOC RN. No s/s of distress noted.
--- NOTE | 2019-12-28 20:05 | NUR ---
Room Transferred Patient was transferred to room 248B via wheelchair, patient tolerated well.
[2019-12-28] MEDS: AMIODARONE HCL 200 MG TAB PO SCH (21:20)
[2019-12-28] MEDS: AMIODARONE 450mg/250ml AE 250 ML IV SCH (21:30)
--- NOTE | 2019-12-28 21:30 | NUR ---
Amiodarone Amiodarone drip held due to MD orders.
--- NOTE | 2019-12-29 00:27 | NUR ---
Sleeping Pill Patient c/o difficulty falling asleep. Paged congregational care pastor hospitalistKeanu ordered Temazepam 15mg PO once. Repeated orders to verified.
[2019-12-29] MEDS ORDERED: TEMAZEPAM 15 MG CAP PO ONE (00:30)
[2019-12-29 06:00] VITALS: BP 103/57
[2019-12-29] MEDS: InsuLIN REG 1unit/0.01ml Soln (100units/ml) SC SCH ×4 (06:22→22:35)
[2019-12-29] MEDS: ACCU-CHEK COMFORT CURVE STRIP VI SCH ×4 (06:22→22:34)
[2019-12-29] MEDS: ALBUTEROL SULF HFA 90MCG INH 200DOSE IN SCH ×3 (06:39→23:41)
[2019-12-29] MEDS: BUDESONIDE (INHALATION) 180 MCG IH IN SCH ×2 (06:39→23:41)
--- NOTE | 2019-12-29 07:45 | NUR ---
opening note assumed care of patient from patient from NOC RN. No s/s of distress noted, patient sitting up in chair. Bed is in lowest locked position, call light within reach, and side rails up x2. Updated patient on plan of care and patient verbalized understanding. Will continue to monitor.
--- NOTE | 2019-12-29 08:00 | NUR ---
pain patient stated having a pain level of 7 "my throat hurts and when I cough my chest hurts. I do not want anything for pain, just a something for my throat like a halls or something." Informed patient that MD will be notified regarding lozenges, patient verbalized understanding.
[2019-12-29 08:49] VITALS: BP 94/43
[2019-12-29] MEDS: DexAMETHasone SOD PHOS 10MG/1ML VIAL INJ IV SCH (09:03)
[2019-12-29] MEDS: DOXYCYCLINE 100MG/250ML 250 ML IV SCH (09:04)
[2019-12-29] MEDS: ZINC SULFATE 220mg CAP or TAB PO SCH (09:04)
[2019-12-29] MEDS: AMIODARONE HCL 200 MG TAB PO SCH ×2 (09:06→22:33)
[2019-12-29] MEDS: ASCORBIC ACID 1,000 MG TAB PO SCH (09:06)
[2019-12-29] MEDS: CHOLECALCIFEROL (VITD3) 2,000 UNIT CAP PO SCH (09:07)
[2019-12-29] MEDS: ENOXAPARIN SOD 40 MG/0.4 ML SYRINGE SC SCH ×2 (09:08→22:34)
[2019-12-29] MEDS: THROAT LOZENGES(CEPASTAT) MT PRN ×3 (09:10→22:00)
[2019-12-29] MEDS: INSULIN 70/30 1unit/0.01ml Susp (100units/ml) SC SCH ×2 (09:37→22:35)
[2019-12-29] MEDS ORDERED: FUROSEMIDE 40 MG/4 ML VIAL IV SCH (10:00)
[2019-12-29] MEDS ORDERED: METOPROLOL SUCCINATE XL 50 MG TAB PO SCH (10:00)
[2019-12-29] MEDS ORDERED: dilTIAZem 120MG ER CAP PO SCH (10:00)
[2019-12-29] MEDS ORDERED: POTASSIUM EFFERVESENT TAB 25 MEQ PO ONE (11:00)
[2019-12-29] MEDS ORDERED: POTASSIUM CHL 20 Meq TABLET PO ONE (11:00)
[2019-12-29] MEDS: AMIODARONE 450mg/250ml AE 250 ML IV SCH (12:03)
[2019-12-29 13:00] VITALS: BP 104/56
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
--- NOTE | 2019-12-29 14:00 | NUR ---
spoke with patient spoke with patient regarding daughters request for hospital social worker. Informed patient regarding what Savanna stated and per patient "I am not unsafe in my house. No one is abusing me, i just want my daughter out. But i am going to handle that, i do not want hospital social worker involved, they do not need to be involved."Informed patient that if she is truly unsafe she can have hospital social worker involved but patient is refusing at this time and denying that she is truly unsafe at home. Will continue to monitor.
--- NOTE | 2019-12-29 14:39 | NUR ---
call from daughter received call from Tg. Rashmi was inquiring if social media marketing manager has been contacted. Informed her that patient is of sound mind, and alert and oriented and refused social sevrvices involvement. Per rashmi she wants social media marketing manager involved, informed her that patient has the right to determine care and who is involved in care, and patient can make her own decisions as she is alert and oriented x4.
--- NOTE | 2019-12-29 15:40 | NUR ---
Nutrition Assessment Notes Please refer to link for full assessment notes. Est Energy needs: 1467-3981 kcals (17-20 kcal/kgBW) Est Protein needs: 82-90 gms/day (1.0-1.1 gm/kgBW) Will continue to monitor and reassess prn. Addendum: 12/29/19 at [address] Amended: Links added.
[2019-12-29 16:49] VITALS: BP 115/57
--- NOTE | 2019-12-29 19:16 | NUR ---
end of shift note Endorsed care to NOC GUSTAVO Lopez. No s/s of distress noted.
[2019-12-29 21:49] VITALS: BP 121/59
[2019-12-29] MEDS: DOXYCYCLINE 100 MG TAB/CAP PO SCH (22:33)
[2019-12-30] MEDS: ACETAMINOPHEN 500 MG TAB PO PRN ×2 (01:00→23:34)
[2019-12-30] MEDS: AMIODARONE 450mg/250ml AE 250 ML IV SCH (03:30)
[2019-12-30 05:00] VITALS: BP 100/51
[2019-12-30] MEDS: ACCU-CHEK COMFORT CURVE STRIP VI SCH ×3 (06:38→17:15)
[2019-12-30] MEDS: InsuLIN REG 1unit/0.01ml Soln (100units/ml) SC SCH ×3 (06:40→17:15)
[2019-12-30] MEDS: ALBUTEROL SULF HFA 90MCG INH 200DOSE IN SCH ×3 (07:08→23:02)
[2019-12-30] MEDS: BUDESONIDE (INHALATION) 180 MCG IH IN SCH ×2 (07:08→23:02)
--- NOTE | 2019-12-30 07:30 | NUR ---
Opening Shift Note Assumed care of patient, awake and alert. A/O X 4. No S/S of distress/SOB or pain. Patient on 6L NC. Patient reports chest pain when coughing. Incentive spirometer encouraged as well as changing positions independently. Skin is in tact and bowel sounds heard throughout. Instructed on POC and to call for assist PRN. Patient verbalized understanding. Safety measure in place and the call light is within reach of the patient. Will continue to monitor for changes Q1hr and PRN.
[2019-12-30 08:00] VITALS: BP 110/54
[2019-12-30 08:07] LABS: Potassium 4.1 mmol/L (3.5-5.1)
[2019-12-30 08:12] LABS: Calcium 8.2 mg/dL (8.5-10.1)
[2019-12-30 09:00] VITALS: BP 110/54
[2019-12-30] MEDS: FAMOTIDINE 20 MG TAB PO SCH (09:00)
[2019-12-30] MEDS: INSULIN 70/30 1unit/0.01ml Susp (100units/ml) SC SCH (10:30)
[2019-12-30] MEDS: DOXYCYCLINE 100 MG TAB/CAP PO SCH (10:31)
[2019-12-30] MEDS: ZINC SULFATE 220mg CAP or TAB PO SCH (10:31)
[2019-12-30] MEDS: ASCORBIC ACID 1,000 MG TAB PO SCH (10:32)
[2019-12-30] MEDS: CHOLECALCIFEROL (VITD3) 2,000 UNIT CAP PO SCH (10:32)
[2019-12-30] MEDS: AMIODARONE HCL 200 MG TAB PO SCH ×2 (10:33→22:47)
[2019-12-30] MEDS: METOPROLOL SUCCINATE XL 50 MG TAB PO SCH (10:34)
[2019-12-30] MEDS: DexAMETHasone SOD PHOS 10MG/1ML VIAL INJ IV SCH (10:35)
[2019-12-30] MEDS: ENOXAPARIN SOD 40 MG/0.4 ML SYRINGE SC SCH (10:35)
--- NOTE | 2019-12-30 11:35 | NUR ---
Dr. Gaona at bedside Dr. Gaona at bedside discussing the POC with the patient. Doctor talked to the patient regarding plasma transfusion and the benefits associated with the treatment. Patient agreed to transfusion.
[2019-12-30 12:47] VITALS: BP 125/61
--- NOTE | 2019-12-30 13:15 | NUR ---
Dr. Gaona paged Dr. Gaona paged concerning an order and signature required for convalescent plasma transfusion. Awaiting call back.
--- NOTE | 2019-12-30 14:53 | NUR ---
Patient repositioning Patient is able to reposition herself lying on her right side at this time. Reminded to turn every couple of hours.
[2019-12-30 17:00] VITALS: BP_SYST 110
--- NOTE | 2019-12-30 19:00 | NUR ---
Dr. Gaona signed consent Dr. Gaona came by the unit and signed all necessary paperwork for the convalescent plasma transfusion. Will endorse to casino shift manager.
[2019-12-30 22:00] VITALS: BP 120/65
--- NOTE | 2019-12-30 23:02 | NUR ---
MDIS WERE HELD DUE TO PT BEING DISTRAUGHT AND C/O OF CHEST PAIN. PT JUST RECEIVED THE NEWS HER . SHE WAS CHANGED FROM A 4L NC TO A 15L NON-REBREATHER. RN @ BEDSIDE.
[2019-12-31] MEDS: ACCU-CHEK COMFORT CURVE STRIP VI SCH ×5 (00:20→22:00)
[2019-12-31] MEDS: InsuLIN REG 1unit/0.01ml Soln (100units/ml) SC SCH ×5 (00:21→23:04)
[2019-12-31] MEDS: ENOXAPARIN SOD 40 MG/0.4 ML SYRINGE SC SCH ×3 (00:21→23:06)
[2019-12-31] MEDS: INSULIN 70/30 1unit/0.01ml Susp (100units/ml) SC SCH ×3 (00:22→23:06)
[2019-12-31 06:08] VITALS: BP 117/51
[2019-12-31] MEDS: ALBUTEROL SULF HFA 90MCG INH 200DOSE IN SCH ×3 (07:05→22:24)
[2019-12-31] MEDS: BUDESONIDE (INHALATION) 180 MCG IH IN SCH ×2 (07:05→22:24)
[2019-12-31 08:00] VITALS: BP 115/53
[2019-12-31] MEDS ORDERED: MAGNESIUM SULFATE 1GM/100ML 100 ML IV ONE (08:15)
[2019-12-31] MEDS: DexAMETHasone SOD PHOS 10MG/1ML VIAL INJ IV SCH (10:35)
[2019-12-31] MEDS: FUROSEMIDE 40 MG/4 ML VIAL IV SCH (10:35)
[2019-12-31] MEDS: ZINC SULFATE 220mg CAP or TAB PO SCH (10:35)
[2019-12-31] MEDS: METOPROLOL SUCCINATE XL 50 MG TAB PO SCH (10:36)
[2019-12-31] MEDS: ASCORBIC ACID 1,000 MG TAB PO SCH (10:36)
[2019-12-31] MEDS: CHOLECALCIFEROL (VITD3) 2,000 UNIT CAP PO SCH (10:36)
[2019-12-31 12:00] VITALS: BP 133/68
--- NOTE | 2019-12-31 12:00 | NUR ---
patient consented with Dr jones for remdesevir and convalescent plasma. Patient aware of side effects and medication, patient has no further questions.
--- NOTE | 2019-12-31 12:30 | NUR ---
CONSENT FOR REMDESEVIR SENT TO PHARMACY
--- NOTE | 2019-12-31 15:25 | NUR ---
Assessment Regarding social service consult family states is unsafe for patient to return home. Patient is an alert and oriented female that is pleasant and able to make her needs known. Prior to admission patient lived home with family and functioned independently. Patient has a walker for home use. Patient informed me she does not want to return home and will be moving to [place] with her daughter Savanna . Savanna will transport patient upon d/c. Order for home oxygen has been completed on 12/28/19. Informed patient she has the right to participate in all discharge planning. Patient verbalize understanding. Addendum: 12/31/19 at 1531 by YESY LEACH Amended: Links added.
[2019-12-31 16:48] VITALS: BP 127/64
--- NOTE | 2019-12-31 17:11 | NUR ---
MERT CHAVIS APPROVED PATIENTS SON TO SEE PATIENT.
--- NOTE | 2019-12-31 18:54 | NUR ---
PATIENTS SON HERE TO SEE PATIENT. SON AND PATIENT INFORMED OF RISKS OF VISITING PATIENT IN COVID UNIT. PATIENT FAMILY ( SON) ASSISTED TO DON PROPER PPE.
--- NOTE | 2019-12-31 19:15 | NUR ---
Opening Shift Note Received report from tiera Daley RN. Assumed care of patient, awake and alert. No S/S of distress/SOB or pain. On 6L Oxymizer saturating 94%. Instructed on POC and to call for assist PRN, will continue to monitor for changes Q1hr and PRN. Bed placed in lowest position, bed alarm turned on and call light within reach.
[2019-12-31 19:26] LABS: Anion Gap 6 (5-15); Carbon Dioxide 25 mmol/L (21-32); Chloride 108 mmol/L (98-107); Potassium 3.6 mmol/L (3.5-5.1); Sodium 139 mmol/L (136-145)
[2019-12-31 19:27] LABS: Alanine Aminotransferase 67 U/L (13-56); Alkaline Phosphatase 75 U/L (45-117); Aspartate Aminotransferase 66 U/L (15-37); BUN/Creatinine Ratio 28.3; Bilirubin, Total 0.4 mg/dL (0.2-1.0); Blood Urea Nitrogen 26 mg/dL (7-18); Calcium 8.1 mg/dL (8.5-10.1); GFR African American 77 mL/min; GFR Non-African American 63 mL/min; Glucose 164 mg/dL (74-106)
[2019-12-31 19:28] LABS: Albumin 2.5 g/dL (3.4-5.0); Total Protein 6.2 g/dL (6.4-8.2)
[2019-12-31 20:00] VITALS: BP 136/60
[2019-12-31] MEDS: ACETAMINOPHEN 500 MG TAB PO PRN (20:08)
[2019-12-31 21:00] VITALS: BP 136/60
[2019-12-31] MEDS ORDERED: REMDESIVIR 200 MG in NS 210ml LOADING DOSE ADULT IV ONE (21:00)
[2020-01-01] VITALS (9 sets, daily range): BP systolic 104–136; BP diastolic 44–70
--- NOTE | 2020-01-01 00:12 | NUR ---
Started remdesivir infusion; vitals are temp 98.1, 62 HR, 20 respirations, 94% on 6L Oxymizer, 136/60 blood pressure. Will monitor
--- NOTE | 2020-01-01 00:20 | NUR ---
IV Infiltrated. Remdesivir infusion stopped. Will insert another IV EMMA
--- NOTE | 2020-01-01 01:10 | NUR ---
IV insertion IV access obtained, via clean sterile technique by inserting 22 gauge catheter at right wrist after first attempt. IV secured properly. No trauma to site. Patient tolerated procedure well.
--- NOTE | 2020-01-01 01:10 | NUR ---
IV inserted. Remdesivir infusion resumed. Will monitor.
--- NOTE | 2020-01-01 01:10 | NUR ---
IV removal IV to left forearm infiltrated and DC'd with sterile technique, catheter fully intact. Pressure dressing applied to site. Patient tolerated procedure well.
--- NOTE | 2020-01-01 01:35 | NUR ---
I5 minutes into Remdesivir infusion vitals are; blood pressure 130/58, pulse 67, respirations 20, temp 97.8.
--- NOTE | 2020-01-01 02:10 | NUR ---
Remdesivir infusion done. Post vitals are blood pressure 120/64, pulse 68, 92 on 6L Oxymizer, respirations 19 and temp 97.8. No adverse reactions noted.
[2020-01-01] MEDS: ACETAMINOPHEN 500 MG TAB PO PRN ×2 (04:24→18:42)
--- NOTE | 2020-01-01 06:02 | NUR ---
Patient is resting in bed with eyes closed, no distress noted. On 8L Oxymizer saturating at 92%. Patient denies pain
[2020-01-01] MEDS: ACCU-CHEK COMFORT CURVE STRIP VI SCH ×4 (06:06→22:00)
[2020-01-01] MEDS: InsuLIN REG 1unit/0.01ml Soln (100units/ml) SC SCH ×3 (06:06→17:50)
[2020-01-01] MEDS: BUDESONIDE (INHALATION) 180 MCG IH IN SCH ×2 (07:14→21:22)
[2020-01-01] MEDS: ALBUTEROL SULF HFA 90MCG INH 200DOSE IN SCH ×3 (07:14→21:22)
[2020-01-01 07:17] LABS: Hematocrit 36.5 % (36.0-46.0); Hemoglobin 11.9 g/dL (12.2-16.2); Mean Corpuscular Hemoglobin 29.3 pg (28.0-32.0); Mean Corpuscular Hgb Conc. 32.7 g/dL (32.0-36.0); Mean Corpuscular Volume 89.7 fL (80.0-100.0); Platelet Count (auto) 327 10^3/uL (140-450); Red Blood Cells 4.06 10^6/uL (4.0-5.20); Red Cell Distribution Width 13.4 % (11.8-14.3); White Blood Cell 9.4 10^3/uL (4.4-10.8)
[2020-01-01 07:21] LABS: Basophils % (manual) 0 (0.0-2.0); Blast Cells 0; Eosinophils % (manual) 0 (0-7); Metamyelocytes % 0; Promyelocytes % 0; Reactive Lymphocytes 0
[2020-01-01 07:51] LABS: Albumin 2.4 g/dL (3.4-5.0); BUN/Creatinine Ratio 26.7; Bilirubin, Total 0.4 mg/dL (0.2-1.0); Potassium 3.5 mmol/L (3.5-5.1); Total Protein 6.2 g/dL (6.4-8.2)
[2020-01-01 08:09] LABS: CRP High Sensitivity 3.75 mg/dL (< 0.3)
[2020-01-01] MEDS: FAMOTIDINE 20 MG TAB PO SCH (09:31)
[2020-01-01] MEDS: DexAMETHasone SOD PHOS 10MG/1ML VIAL INJ IV SCH (09:31)
[2020-01-01] MEDS: METOPROLOL SUCCINATE XL 50 MG TAB PO SCH (09:32)
[2020-01-01] MEDS: ASCORBIC ACID 1,000 MG TAB PO SCH (09:32)
[2020-01-01] MEDS: ENOXAPARIN SOD 40 MG/0.4 ML SYRINGE SC SCH (09:32)
[2020-01-01] MEDS: ZINC SULFATE 220mg CAP or TAB PO SCH (09:32)
[2020-01-01] MEDS: CHOLECALCIFEROL (VITD3) 2,000 UNIT CAP PO SCH (09:32)
[2020-01-01] MEDS: FUROSEMIDE 40 MG/4 ML VIAL IV SCH (09:32)
[2020-01-01] MEDS: INSULIN 70/30 1unit/0.01ml Susp (100units/ml) SC SCH (09:33)
--- NOTE | 2020-01-01 12:00 | NUR ---
Vicenta MANNING. INFORMED OF PATIENT STATUS INCLUDING INCREASING OXYGEN DEMAND (8L OXYMIZER TO 12L OXYMIZER). NO NEW ORDERS RECEIVED.
--- NOTE | 2020-01-01 14:16 | NUR ---
Nutrition Followup Note Wt 85.0 kg Pt is positive for COVID, in isolation. pt did not pick her call up. pt is currently on CCHO 60 gm with fair PO of avg 60% x 3 per RN doc Est Energy needs: 0829-1452 kcals (17-20 kcal/kgBW), Est Protein needs: 82-90 gms/day (1.0-1.1 gm/kgBW). Will continue to monitor and reassess prn. Labs: CA 8.0 L, ALB 2.4 L BUN 20 H BM: Pt has no BM reported per RN note Skin: BS 20 low risk, full details in home care coordinator note PES: 1) Obesity aeb BMI of 34.1 kg/m2 r/t energy intake in excess of energy needs 2) Altered nutrition related lab values hyperglycemia, hypocalcemia, hypocalcemia, hypoalbuminemia r/t current/chronic medical condition Comments Will continue to monitor PO intake, skin status, pertinent labs and weight trends. Will f/u in 3-5 days Rec: 1) refer pt to OPD on Dc. 2) Continue current plan of care
[2020-01-01 14:22] LABS: Band Neutrophils % (manual) 3; Lymphocytes % (manual) 16 (10.0-50.0); Monocytes % (manual) 3 (0-12)
[2020-01-01 14:23] LABS: Myelocytes % 1
[2020-01-01] MEDS: REMDESIVIR 100mg in NS 230ml DAILYx4DAYS (NO VENT) IV SCH (17:00)
[2020-01-01] MEDS ORDERED: diphenhdrAMINE HCL 50 MG/1 ML VL ONE (17:28)
[2020-01-01] MEDS ORDERED: diphenhdrAMINE HCL 50 MG/1 ML VL IV ONE (17:30)
--- NOTE | 2020-01-01 17:30 | NUR ---
STATUS CHANGE: PATIENT STARTING TO DEVELOP HIVES ALONG WITH ITCHING AROUND NECK AREA EXTENDING TO LEFT CHEEK AND EAR. TRANSFUSION STOPPED AT THIS TIME. BLUE ALBRECHT AND RECEIVED ORDERS FOR BENADRYL 50MG IV ONE TIME AND END TRANSFUSION. INFORMED CHARGE NURSE MARBELLA AND INFORMED KEVIN FROM BLOOD BANK WHO STATES SHE DOES NOT NEED PLASMA RETURNED TO BLOOD BANK. Addendum: 01/01/20 at 174 by KRISHAN WHITTINGTON RN RN BP 131/57 HR 75 o2 AT Addendum: 01/01/20 at 174 by KRISHAN WHITTINGTON RN RN O2 AT 94%
[2020-01-01] MEDS ORDERED: FAMOTIDINE (10MG/ML) 2ML VL IV ONE (18:00)
--- NOTE | 2020-01-01 18:34 | NUR ---
PRAMOD BIANCHI TO HOLD REMDESIVIR UNTIL ALLERGIC REACTION SUBSIDES.
--- NOTE | 2020-01-01 19:30 | NUR ---
Opening Shift Note Assumed care of patient, awake and alert. No S/S of distress/SOB or pain. On 12 L Oxymizer saturating at 91%. Instructed on POC and to call for assist PRN, will continue to monitor for changes Q1hr and PRN. Bed placed in lowest position, bed alarm turned on and call light within reach.
--- NOTE | 2020-01-01 20:36 | NUR ---
Remdesivir infusion done. Post vitals; blood pressure 110/54, temp 97.8, 91% on 12L Oxymizer, 64HR and 20 respirations. Patient is resting in bed alert and awake, no distress noted.
[2020-01-02 05:00] VITALS: BP 127/61
[2020-01-02] MEDS: InsuLIN REG 1unit/0.01ml Soln (100units/ml) SC SCH ×6 (05:51→21:53)
[2020-01-02] MEDS: ENOXAPARIN SOD 40 MG/0.4 ML SYRINGE SC SCH ×3 (05:52→22:02)
[2020-01-02] MEDS: INSULIN 70/30 1unit/0.01ml Susp (100units/ml) SC SCH ×3 (05:54→21:56)
[2020-01-02] MEDS: BUDESONIDE (INHALATION) 180 MCG IH IN SCH ×2 (06:16→22:49)
[2020-01-02] MEDS: ALBUTEROL SULF HFA 90MCG INH 200DOSE IN SCH ×3 (06:16→22:49)
[2020-01-02] MEDS: ACCU-CHEK COMFORT CURVE STRIP VI SCH ×4 (06:34→21:56)
[2020-01-02 07:37] LABS: Hematocrit 36.9 % (36.0-46.0); Hemoglobin 11.9 g/dL (12.2-16.2); Mean Corpuscular Hemoglobin 29.5 pg (28.0-32.0); Mean Corpuscular Hgb Conc. 32.1 g/dL (32.0-36.0); Mean Corpuscular Volume 91.8 fL (80.0-100.0); Platelet Count (auto) 345 10^3/uL (140-450); Red Blood Cells 4.02 10^6/uL (4.0-5.20); Red Cell Distribution Width 13.9 % (11.8-14.3); White Blood Cell 10.5 10^3/uL (4.4-10.8)
[2020-01-02 07:46] LABS: Band Neutrophils % (manual) 0; Basophils % (manual) 0 (0.0-2.0); Blast Cells 0; Eosinophils % (manual) 0 (0-7); Promyelocytes % 0; Reactive Lymphocytes 0
[2020-01-02 08:13] LABS: Albumin 2.3 g/dL (3.4-5.0); BUN/Creatinine Ratio 24.4; Bilirubin, Total 0.5 mg/dL (0.2-1.0); Calcium 7.9 mg/dL (8.5-10.1); Potassium 3.7 mmol/L (3.5-5.1); Total Protein 6.3 g/dL (6.4-8.2)
[2020-01-02 08:25] LABS: CRP High Sensitivity 7.48 mg/dL (< 0.3)
[2020-01-02] MEDS: ASCORBIC ACID 1,000 MG TAB PO SCH (10:21)
[2020-01-02] MEDS: ACETAMINOPHEN 500 MG TAB PO PRN ×2 (10:21→22:02)
[2020-01-02] MEDS: CHOLECALCIFEROL (VITD3) 2,000 UNIT CAP PO SCH (10:21)
[2020-01-02] MEDS: ZINC SULFATE 220mg CAP or TAB PO SCH (10:21)
[2020-01-02] MEDS: METOPROLOL SUCCINATE XL 50 MG TAB PO SCH (10:23)
[2020-01-02] MEDS: FUROSEMIDE 40 MG/4 ML VIAL IV SCH (10:25)
[2020-01-02] MEDS: DexAMETHasone SOD PHOS 10MG/1ML VIAL INJ IV SCH (12:12)
[2020-01-02 12:53] LABS: Lymphocytes % (manual) 14 (10.0-50.0); Metamyelocytes % 1; Monocytes % (manual) 3 (0-12); Myelocytes % 3
[2020-01-02] MEDS: REMDESIVIR 100mg in NS 230ml DAILYx4DAYS (NO VENT) IV SCH (16:58)
[2020-01-02 17:54] VITALS: BP 110/52
[2020-01-02 18:09] VITALS: BP 114/63
[2020-01-02 18:54] VITALS: BP 121/71
--- NOTE | 2020-01-02 19:30 | NUR ---
Opening Shift Note Assumed care of patient, awake and alert. No S/S of distress/SOB or pain. On 15L Nonrebreather saturating at 94%. Instructed on POC and to call for assist PRN, will continue to monitor for changes Q1hr and PRN. Bed placed in lowest position, bed alarm turned on and call light within reach.
[2020-01-02 22:00] VITALS: BP 111/61
--- NOTE | 2020-01-03 04:04 | NUR ---
Patient continues on 15L Non-rebreather saturating at 92%. Patient is resting in bed with eyes closed. No distress noted.
[2020-01-03] MEDS: ACETAMINOPHEN 500 MG TAB PO PRN (06:07)
[2020-01-03] MEDS: InsuLIN REG 1unit/0.01ml Soln (100units/ml) SC SCH ×4 (06:07→21:36)
[2020-01-03] MEDS: ACCU-CHEK COMFORT CURVE STRIP VI SCH ×4 (06:08→21:34)
[2020-01-03 07:03] LABS: Albumin 2.4 g/dL (3.4-5.0); Calcium 8.2 mg/dL (8.5-10.1); Potassium 3.7 mmol/L (3.5-5.1)
[2020-01-03 07:07] LABS: BUN/Creatinine Ratio 24.6; Bilirubin, Total 0.5 mg/dL (0.2-1.0); Total Protein 6.5 g/dL (6.4-8.2)
[2020-01-03] MEDS: BUDESONIDE (INHALATION) 180 MCG IH IN SCH ×2 (07:21→21:41)
[2020-01-03] MEDS: ALBUTEROL SULF HFA 90MCG INH 200DOSE IN SCH ×3 (07:21→21:41)
[2020-01-03 08:25] VITALS: BP 128/66
[2020-01-03] MEDS: DexAMETHasone SOD PHOS 10MG/1ML VIAL INJ IV SCH (09:54)
[2020-01-03] MEDS: FUROSEMIDE 40 MG/4 ML VIAL IV SCH (09:54)
[2020-01-03] MEDS: FAMOTIDINE 20 MG TAB PO SCH (09:55)
[2020-01-03] MEDS: ASCORBIC ACID 1,000 MG TAB PO SCH (09:55)
[2020-01-03] MEDS: ZINC SULFATE 220mg CAP or TAB PO SCH (09:55)
[2020-01-03] MEDS: ENOXAPARIN SOD 40 MG/0.4 ML SYRINGE SC SCH ×2 (09:55→21:35)
[2020-01-03] MEDS: CHOLECALCIFEROL (VITD3) 2,000 UNIT CAP PO SCH (09:55)
[2020-01-03] MEDS: METOPROLOL SUCCINATE XL 50 MG TAB PO SCH (09:56)
[2020-01-03] MEDS: INSULIN 70/30 1unit/0.01ml Susp (100units/ml) SC SCH ×2 (10:06→21:36)
[2020-01-03] MEDS: REMDESIVIR 100mg in NS 230ml DAILYx4DAYS (NO VENT) IV SCH (16:56)
[2020-01-03 17:00] VITALS: BP 135/49
--- NOTE | 2020-01-03 19:20 | NUR ---
Opening Shift Note Assumed care of patient. Patient on left side resting with eyes closed. No S/S of distress/SOB or pain. On 15L Nonrebreather saturating at 93%. Patient woke up to name; adjusted patient mask to provide proper oxygenation. Instructed on POC and to call for assist PRN, will continue to monitor for changes Q1hr and PRN. Bed placed in lowest position, bed alarm turned on and call light within reach.
[2020-01-04] MEDS: ACCU-CHEK COMFORT CURVE STRIP VI SCH ×4 (06:29→22:50)
[2020-01-04 06:30] LABS: Basophils # (auto) 0 10 ^3/uL (0-0.2); Basophils % (auto) 0.1 % (0.0-2.0); Eosinophils # (auto) 0.1 10 ^3/uL (0-0.8); Eosinophils % (auto) 0.8 % (0.0-7.0); Hematocrit 37.7 % (36.0-46.0); Hemoglobin 12.4 g/dL (12.2-16.2); Lymphocytes # (auto) 1.4 10 ^3/uL (0.4-5.4); Lymphocytes % (auto) 11.3 % (10.0-50.0); Mean Corpuscular Hemoglobin 29.7 pg (28.0-32.0); Mean Corpuscular Hgb Conc. 32.7 g/dL (32.0-36.0); Mean Corpuscular Volume 90.6 fL (80.0-100.0); Monocytes # (auto) 0.5 10 ^3/uL (0-1.3); Monocytes % (auto) 4.2 % (0.0-12.0); Neutrophils # (auto) 10.3 10 ^3/uL (1.6-8.6); Neutrophils % (auto) 83.6 % (37.0-80.0); Platelet Count (auto) 441 10^3/uL (140-450); Red Blood Cells 4.17 10^6/uL (4.0-5.20); White Blood Cell 12.3 10^3/uL (4.4-10.8)
[2020-01-04] MEDS: InsuLIN REG 1unit/0.01ml Soln (100units/ml) SC SCH ×4 (06:30→22:50)
[2020-01-04 06:54] LABS: Potassium 3.6 mmol/L (3.5-5.1)
[2020-01-04 07:12] LABS: Albumin 2.4 g/dL (3.4-5.0); Bilirubin, Total 0.5 mg/dL (0.2-1.0); CRP High Sensitivity 3.57 mg/dL (< 0.3); Calcium 8.1 mg/dL (8.5-10.1); Total Protein 6.4 g/dL (6.4-8.2)
[2020-01-04] MEDS: ALBUTEROL SULF HFA 90MCG INH 200DOSE IN SCH ×3 (07:55→20:47)
[2020-01-04] MEDS: BUDESONIDE (INHALATION) 180 MCG IH IN SCH ×2 (07:55→20:47)
[2020-01-04 09:23] VITALS: BP 135/49
[2020-01-04] MEDS: DexAMETHasone SOD PHOS 10MG/1ML VIAL INJ IV SCH (09:40)
[2020-01-04] MEDS: ZINC SULFATE 220mg CAP or TAB PO SCH (09:41)
[2020-01-04] MEDS: FUROSEMIDE 40 MG/4 ML VIAL IV SCH (09:41)
[2020-01-04] MEDS: METOPROLOL SUCCINATE XL 50 MG TAB PO SCH (09:42)
[2020-01-04] MEDS: ASCORBIC ACID 1,000 MG TAB PO SCH (09:42)
[2020-01-04] MEDS: CHOLECALCIFEROL (VITD3) 2,000 UNIT CAP PO SCH (09:43)
[2020-01-04] MEDS: ENOXAPARIN SOD 40 MG/0.4 ML SYRINGE SC SCH ×2 (09:45→22:50)
[2020-01-04] MEDS: INSULIN 70/30 1unit/0.01ml Susp (100units/ml) SC SCH ×2 (09:52→22:50)
[2020-01-04] MEDS: ACETAMINOPHEN 500 MG TAB PO PRN ×2 (09:57→20:15)
--- NOTE | 2020-01-04 14:46 | NUR ---
Nutrition Followup Note Wt 85.0 kg Pt is positive for COVID, in isolation. Pt is currently on CCHO 60 gm diet, appetite is good aeb 100% PO intake x 6 per RN doc Est Energy needs: 8261-1868 kcals (17-20 kcal/kgBW), Est Protein needs: 82-90 gms/day (1.0-1.1 gm/kgBW). Will continue to monitor and reassess prn. Labs: CA 8.1 L, ALB 2.4 L BUN 20 H BM: Pt had 1 BM reported on 01/02 per RN note Skin: BS 20 low risk, full details in spiritual care coordinator note PES: 1) Obesity aeb BMI of 34.1 kg/m2 r/t energy intake in excess of energy needs 2) Altered nutrition related lab values hyperglycemia, hypocalcemia, hypocalcemia, hypoalbuminemia r/t current/chronic medical condition Comments Will continue to monitor PO intake, skin status, pertinent labs and weight trends. Will f/u in 3-5 days Rec: 1) refer pt to OPD on Dc. 2) Continue current plan of care
[2020-01-04 17:00] VITALS: BP 131/60
[2020-01-04] MEDS: REMDESIVIR 100mg in NS 230ml DAILYx4DAYS (NO VENT) IV SCH (17:00)
--- NOTE | 2020-01-04 17:00 | NUR ---
REMDESIVIR PRE-INFUSION VS BP:116/60 MMHG HR: 79 BPM SPO2: 90% WILL CONTINUE TO MONITOR.
--- NOTE | 2020-01-04 17:15 | NUR ---
REMDESIVIR 15 MIN-INFUSION VS BP:116/61 MMHG HR: 76 BPM SPO2: 94% WILL CONTINUE TO MONITOR. NO S/S OF SOB/DISTRESS NOTED.
--- NOTE | 2020-01-04 18:05 | NUR ---
REMDESIVIR POST-INFUSION VS BP:120/61 MMHG HR: 80 BPM SPO2: 94% WILL CONTINUE TO MONITOR. NO S/S OF SOB/DISTRESS NOTED.
[2020-01-04 22:00] VITALS: BP 113/45
[2020-01-05 05:00] VITALS: BP 133/53
[2020-01-05] MEDS: ACCU-CHEK COMFORT CURVE STRIP VI SCH ×4 (06:33→21:49)
[2020-01-05] MEDS: InsuLIN REG 1unit/0.01ml Soln (100units/ml) SC SCH ×4 (06:33→21:51)
[2020-01-05] MEDS: ALBUTEROL SULF HFA 90MCG INH 200DOSE IN SCH ×3 (06:58→20:20)
[2020-01-05] MEDS: BUDESONIDE (INHALATION) 180 MCG IH IN SCH ×2 (06:58→20:20)
[2020-01-05 09:00] VITALS: BP 118/54
[2020-01-05] MEDS: DexAMETHasone SOD PHOS 10MG/1ML VIAL INJ IV SCH (10:41)
[2020-01-05] MEDS: ZINC SULFATE 220mg CAP or TAB PO SCH (10:42)
[2020-01-05] MEDS: FUROSEMIDE 40 MG/4 ML VIAL IV SCH (10:42)
[2020-01-05] MEDS: METOPROLOL SUCCINATE XL 50 MG TAB PO SCH (10:43)
[2020-01-05] MEDS: ASCORBIC ACID 1,000 MG TAB PO SCH (10:43)
[2020-01-05] MEDS: ENOXAPARIN SOD 40 MG/0.4 ML SYRINGE SC SCH ×2 (10:43→21:49)
[2020-01-05] MEDS: CHOLECALCIFEROL (VITD3) 2,000 UNIT CAP PO SCH (10:43)
[2020-01-05] MEDS: FAMOTIDINE 20 MG TAB PO SCH (10:48)
[2020-01-05] MEDS: INSULIN 70/30 1unit/0.01ml Susp (100units/ml) SC SCH ×2 (10:56→21:51)
--- NOTE | 2020-01-05 12:11 | NUR ---
ADVANCE DIRECTIVE DR. ALBRECHT AT BEDSIDE. DISCUSSED POC WITH PATIENT. PATIENT INFORMED SHE IS ASSIGNING KATY FALK (DAUGHTER [phone]) AND ELIAS LOVE (SON/[phone]) FOR HER MEDICAL DECISIONS.
[2020-01-05 13:00] VITALS: BP 116/50
[2020-01-05 17:00] VITALS: BP 103/48
--- NOTE | 2020-01-05 18:24 | NUR ---
GAVE REPORT AND ENDORSED CARE TO GUSTAVO DUCKWORTH.
--- NOTE | 2020-01-05 19:30 | NUR ---
Opening Shift Note Assumed patient care from Verónica CHEN. Patient is AOX4 and sitting on a commode. Patient ambulates safely by self; standby assist if needed. Patient on 15 LPM Oxymizer. No s/s of distress or Pain noted. SOB while getting up to commode. Patient told to use call light PRN for assist. Bed locked in lowest position and call light is within reach. Will continue to monitor.
[2020-01-05 21:49] VITALS: BP 118/61
[2020-01-06] MEDS: ACETAMINOPHEN 500 MG TAB PO PRN ×2 (00:31→22:09)
[2020-01-06] MEDS: InsuLIN REG 1unit/0.01ml Soln (100units/ml) SC SCH ×4 (06:23→22:57)
[2020-01-06] MEDS: ACCU-CHEK COMFORT CURVE STRIP VI SCH ×4 (06:23→22:00)
[2020-01-06] MEDS: BUDESONIDE (INHALATION) 180 MCG IH IN SCH ×2 (07:41→22:40)
[2020-01-06] MEDS: ALBUTEROL SULF HFA 90MCG INH 200DOSE IN SCH ×3 (07:41→22:40)
[2020-01-06] MEDS: INSULIN 70/30 1unit/0.01ml Susp (100units/ml) SC SCH ×2 (10:00→22:56)
[2020-01-06] MEDS: FUROSEMIDE 40 MG/4 ML VIAL IV SCH (11:30)
[2020-01-06] MEDS: METOPROLOL SUCCINATE XL 50 MG TAB PO SCH (11:30)
[2020-01-06] MEDS: CHOLECALCIFEROL (VITD3) 2,000 UNIT CAP PO SCH (11:30)
[2020-01-06] MEDS: ZINC SULFATE 220mg CAP or TAB PO SCH (11:30)
[2020-01-06] MEDS: DexAMETHasone SOD PHOS 10MG/1ML VIAL INJ IV SCH (11:30)
[2020-01-06] MEDS: ASCORBIC ACID 1,000 MG TAB PO SCH (11:30)
[2020-01-06] MEDS: ENOXAPARIN SOD 40 MG/0.4 ML SYRINGE SC SCH ×2 (11:30→22:10)
[2020-01-06 12:49] VITALS: BP 108/52
[2020-01-06 16:48] VITALS: BP 113/55
--- NOTE | 2020-01-06 18:47 | NUR ---
opening shift note Assumed care patient in bed AOx4. No s/s of distress noted at this time, patient denies pain. Patient on 15 L O2 via non-rebreather mask O2 saturation 96%. Update given regarding POC and all questions and concerns addressed. Bed in lowest, locked position, call light within reach. Will continue care.
--- NOTE | 2020-01-06 19:10 | NUR ---
Opening Shift Note Received report from tiera Brenner RN. Assumed care of patient, awake and alert. No S/S of distress/SOB or pain. On 15L Nonrebreather saturating at 94%. Instructed on POC and to call for assist PRN, will continue to monitor for changes Q1hr and PRN. Bed placed in lowest position, bed alarm turned on and call light within reach.
[2020-01-06 22:36] VITALS: BP 119/67
--- NOTE | 2020-01-07 00:15 | NUR ---
Assisted patient to use commode with medium soft and brown bowel movement. Assisted patient back in bed. No distress noted and patient denies pain.
[2020-01-07 05:28] VITALS: BP 127/58
[2020-01-07] MEDS: ACCU-CHEK COMFORT CURVE STRIP VI SCH ×4 (06:23→22:00)
[2020-01-07] MEDS: InsuLIN REG 1unit/0.01ml Soln (100units/ml) SC SCH ×4 (06:26→21:53)
[2020-01-07] MEDS: ALBUTEROL SULF HFA 90MCG INH 200DOSE IN SCH ×3 (07:26→22:57)
[2020-01-07] MEDS: BUDESONIDE (INHALATION) 180 MCG IH IN SCH ×2 (07:26→22:57)
--- NOTE | 2020-01-07 07:26 | NUR ---
Respiratory note: TOOK PATIENT OFF 15L NRB AND PLACED ON 12L OXYMIZER SPO2 90%.
[2020-01-07 07:28] LABS: Basophils # (auto) 0 10 ^3/uL (0-0.2); Basophils % (auto) 0.1 % (0.0-2.0); Eosinophils # (auto) 0 10 ^3/uL (0-0.8); Eosinophils % (auto) 0.2 % (0.0-7.0); Hematocrit 35.5 % (36.0-46.0); Hemoglobin 11.8 g/dL (12.2-16.2); Lymphocytes # (auto) 1.1 10 ^3/uL (0.4-5.4); Lymphocytes % (auto) 6.7 % (10.0-50.0); Mean Corpuscular Hemoglobin 29.9 pg (28.0-32.0); Mean Corpuscular Hgb Conc. 33.3 g/dL (32.0-36.0); Mean Corpuscular Volume 89.9 fL (80.0-100.0); Monocytes # (auto) 0.7 10 ^3/uL (0-1.3); Monocytes % (auto) 4.5 % (0.0-12.0); Neutrophils % (auto) 88.5 % (37.0-80.0); Platelet Count (auto) 399 10^3/uL (140-450); Red Blood Cells 3.95 10^6/uL (4.0-5.20); Red Cell Distribution Width 13.7 % (11.8-14.3); White Blood Cell 15.8 10^3/uL (4.4-10.8)
[2020-01-07 07:33] LABS: Albumin 2.5 g/dL (3.4-5.0); Calcium 8.3 mg/dL (8.5-10.1); Potassium 3.8 mmol/L (3.5-5.1)
[2020-01-07 07:42] LABS: BUN/Creatinine Ratio 34.2; Bilirubin, Total 0.4 mg/dL (0.2-1.0); CRP High Sensitivity 1.87 mg/dL (< 0.3); Total Protein 6.5 g/dL (6.4-8.2)
[2020-01-07 08:40] VITALS: BP 119/55
[2020-01-07] MEDS: METOPROLOL SUCCINATE XL 50 MG TAB PO SCH (10:00)
[2020-01-07] MEDS: FAMOTIDINE 20 MG TAB PO SCH (10:51)
[2020-01-07] MEDS: DexAMETHasone SOD PHOS 10MG/1ML VIAL INJ IV SCH (10:52)
[2020-01-07] MEDS: FUROSEMIDE 40 MG/4 ML VIAL IV SCH (10:53)
[2020-01-07] MEDS: ASCORBIC ACID 1,000 MG TAB PO SCH (10:53)
[2020-01-07] MEDS: ZINC SULFATE 220mg CAP or TAB PO SCH (10:53)
[2020-01-07] MEDS: CHOLECALCIFEROL (VITD3) 2,000 UNIT CAP PO SCH (10:54)
[2020-01-07] MEDS: ENOXAPARIN SOD 40 MG/0.4 ML SYRINGE SC SCH ×2 (10:56→22:40)
[2020-01-07] MEDS: INSULIN 70/30 1unit/0.01ml Susp (100units/ml) SC SCH ×2 (10:56→21:52)
[2020-01-07 12:31] VITALS: BP 110/57
--- NOTE | 2020-01-07 14:21 | NUR ---
Nutrition Followup Note Wt 81.8 kg Pt is positive for COVID, in isolation. Pt is currently on CCHO 60 gm diet, appetite is good aeb ave 83% PO intake x3 per RN doc Est Energy needs: 0507-6896 kcals (17-20 kcal/kgBW), Est Protein needs: 82-90 gms/day (1.0-1.1 gm/kgBW). Will continue to monitor and reassess prn. Labs: CA 8.3 L, ALB 2.5 L BUN 27 H, GLUC 138 H BM: Pt had 1 BM reported on 01/06 per RN note Skin: BS 19 low risk, full details in director day care center note PES: 1) Obesity aeb BMI of 34.1 kg/m2 r/t energy intake in excess of energy needs 2) Altered nutrition related lab values hyperglycemia, hypocalcemia, hypocalcemia, hypoalbuminemia r/t current/chronic medical condition Comments Will continue to monitor PO intake, skin status, pertinent labs and weight trends. Will f/u in 3-5 days Rec: 1) refer pt to OPD on D/C. 2) Continue current plan of care
[2020-01-07] MEDS: ACETAMINOPHEN 500 MG TAB PO PRN (15:40)
[2020-01-07 17:28] VITALS: BP 90/57
--- NOTE | 2020-01-07 19:00 | NUR ---
Patient care endorsed endorsed care to Gloria rn, pt sitting up in bed eating dinner now. Patient proning throughout the day as tolerated and doing IS as ordered. Pt on 12L oxymizer and tolerating well. No acute distress or sob noted. Call light within reach.
--- NOTE | 2020-01-07 19:00 | NUR ---
Opening Shift Note Received report from tiera Allen RN. Assumed care of patient, awake and alert. No S/S of distress/SOB or pain. On 12L Oxymizer saturating at 91%. Instructed on POC and to call for assist PRN, will continue to monitor for changes Q1hr and PRN.
--- NOTE | 2020-01-07 21:14 | NUR ---
Given Hot tea per patient request.
[2020-01-07 22:00] VITALS: BP 110/47
[2020-01-08 03:57] VITALS: BP 110/47
[2020-01-08 05:00] VITALS: BP 132/54
[2020-01-08] MEDS: ACCU-CHEK COMFORT CURVE STRIP VI SCH ×4 (06:37→21:46)
[2020-01-08] MEDS: InsuLIN REG 1unit/0.01ml Soln (100units/ml) SC SCH ×4 (06:38→21:48)
[2020-01-08] MEDS: ALBUTEROL SULF HFA 90MCG INH 200DOSE IN SCH ×3 (07:25→22:19)
[2020-01-08] MEDS: BUDESONIDE (INHALATION) 180 MCG IH IN SCH ×2 (07:25→22:19)
--- NOTE | 2020-01-08 08:55 | NUR ---
at bedside MD Gaona at bedside, aware of patient's status.
[2020-01-08 09:00] VITALS: BP 115/52
[2020-01-08] MEDS: INSULIN 70/30 1unit/0.01ml Susp (100units/ml) SC SCH ×2 (10:36→21:49)
[2020-01-08] MEDS: DexAMETHasone SOD PHOS 10MG/1ML VIAL INJ IV SCH (10:50)
[2020-01-08] MEDS: ENOXAPARIN SOD 40 MG/0.4 ML SYRINGE SC SCH ×2 (10:50→21:46)
[2020-01-08] MEDS: FUROSEMIDE 40 MG/4 ML VIAL IV SCH (10:50)
[2020-01-08] MEDS: CHOLECALCIFEROL (VITD3) 2,000 UNIT CAP PO SCH (10:50)
[2020-01-08] MEDS: ZINC SULFATE 220mg CAP or TAB PO SCH (10:50)
[2020-01-08] MEDS: ASCORBIC ACID 1,000 MG TAB PO SCH (10:50)
[2020-01-08] MEDS: METOPROLOL SUCCINATE XL 50 MG TAB PO SCH (10:51)
[2020-01-08] MEDS: ACETAMINOPHEN 500 MG TAB PO PRN ×2 (11:44→21:50)
--- NOTE | 2020-01-08 11:44 | NUR ---
Patient requesting "Tylenol for back pain" at this time. Medicated as ordered.
[2020-01-08 13:11] VITALS: BP 141/52
[2020-01-08 17:00] VITALS: BP 118/57
--- NOTE | 2020-01-08 19:09 | NUR ---
Patient care endorsed endorsed care to Gloria nicolas. Patient sitting up in bed eating dinner in no acute distress or sob currently 12L oxymizer 91%. Patient using IS constantly as ordered. Patient sat up in chair for 4hrs today. Call light within reach.
--- NOTE | 2020-01-08 19:15 | NUR ---
Opening Shift Note Received report from tiera Allen RN. Assumed care of patient, awake and alert. No S/S of distress/SOB or pain. On 12L Oxymizer saturating at 91%. Instructed on POC and to call for assist PRN, will continue to monitor for changes Q1hr and PRN. Bed placed in lowest position and call light within reach.
[2020-01-08 22:00] VITALS: BP 111/48
[2020-01-09 05:00] VITALS: BP 114/57
--- NOTE | 2020-01-09 05:00 | NUR ---
Tea given per request. Patient is resting in bed with eyes closed, no distress noted. On 12LOxymizer saturating at 93%.
[2020-01-09] MEDS: ACCU-CHEK COMFORT CURVE STRIP VI SCH ×4 (05:54→21:43)
[2020-01-09] MEDS: InsuLIN REG 1unit/0.01ml Soln (100units/ml) SC SCH ×4 (06:13→22:01)
[2020-01-09] MEDS: ALBUTEROL SULF HFA 90MCG INH 200DOSE IN SCH ×3 (07:26→22:50)
[2020-01-09] MEDS: BUDESONIDE (INHALATION) 180 MCG IH IN SCH ×2 (07:27→22:50)
--- NOTE | 2020-01-09 07:30 | NUR ---
Received care of patient patient assisted up to the BSC and patient noted to desat into 75 pt slowly recovered up to 94% on 13L oxymizer. Patient back in bed. Denies sob, no distress noted. Cont to monitor
--- NOTE | 2020-01-09 08:54 | NUR ---
MD at bedside MD Gaona at bedside, aware of patient's status including episode pt desat into 75%. Per MD Titrate oxygen to 11L. Will cont to monitor.
[2020-01-09 09:00] VITALS: BP 106/50
[2020-01-09] MEDS: ASCORBIC ACID 1,000 MG TAB PO SCH (10:37)
[2020-01-09] MEDS: FAMOTIDINE 20 MG TAB PO SCH (10:37)
[2020-01-09] MEDS: ZINC SULFATE 220mg CAP or TAB PO SCH (10:37)
[2020-01-09] MEDS: CHOLECALCIFEROL (VITD3) 2,000 UNIT CAP PO SCH (10:37)
[2020-01-09] MEDS: INSULIN 70/30 1unit/0.01ml Susp (100units/ml) SC SCH ×2 (10:38→21:57)
[2020-01-09] MEDS: ENOXAPARIN SOD 40 MG/0.4 ML SYRINGE SC SCH ×2 (10:39→21:56)
[2020-01-09] MEDS: DexAMETHasone SOD PHOS 10MG/1ML VIAL INJ IV SCH (10:40)
[2020-01-09] MEDS: METOPROLOL SUCCINATE XL 50 MG TAB PO SCH (10:55)
[2020-01-09] MEDS: FUROSEMIDE 40 MG/4 ML VIAL IV SCH (10:55)
[2020-01-09] MEDS: ACETAMINOPHEN 500 MG TAB PO PRN (10:58)
--- NOTE | 2020-01-09 11:52 | NUR ---
Attempted to titrate patient to 11l oxymizer but highest sat 87%. Pt placed back on 12L oxymizer sat 91%. Patient sitting on BSC.Call light within reach
[2020-01-09 13:00] VITALS: BP 101/52
--- NOTE | 2020-01-09 14:53 | NUR ---
Spoke to patient's daughter Savanna after password verified and updated her on POC and status. Patient requesting no phone call to be transferred to her room unless password is provided. corporation secretary notified. Cont to monitor
[2020-01-09 17:00] VITALS: BP 102/51
--- NOTE | 2020-01-09 19:20 | NUR ---
Patient resting comfortably in bed no acute distress or sob noted o2 at 12L oxymizer sat 92%. Patient noted doing IS as ordered all day and proning as tolerated. Call light within reach
--- NOTE | 2020-01-09 19:26 | NUR ---
Patient care endorsed to Gloria nicolas
[2020-01-09 22:00] VITALS: BP 118/51
--- NOTE | 2020-01-09 22:00 | NUR ---
Hospitalist paged for high blood sugar Blood sugar check at 2135 is 444 and 439mg/dl respectively. Hospitalist paged. Awaiting call back
--- NOTE | 2020-01-10 | NUR ---
Hospitalist called back Received an order for aggressive sliding scale. Order noted.
--- NOTE | 2020-01-10 00:12 | NUR ---
Accucheck follow up is 324mg/dl
[2020-01-10] MEDS ORDERED: DEXTROSE (50%) 50ML SYRG IV PRN ×2 (00:30→05:30)
[2020-01-10 05:00] VITALS: BP 120/51
[2020-01-10] MEDS: ACCU-CHEK COMFORT CURVE STRIP VI SCH ×4 (06:23→21:48)
[2020-01-10] MEDS: InsuLIN REG 1unit/0.01ml Soln (100units/ml) SC SCH ×4 (06:25→21:50)
--- NOTE | 2020-01-10 06:45 | NUR ---
Complete bed changed done
[2020-01-10] MEDS: ALBUTEROL SULF HFA 90MCG INH 200DOSE IN SCH ×3 (06:55→22:00)
[2020-01-10] MEDS: BUDESONIDE (INHALATION) 180 MCG IH IN SCH ×2 (06:55→22:00)
--- NOTE | 2020-01-10 06:55 | NUR ---
Respiratory note: FOUND PT ON 15L OXYMIZER DOING I.S. SPO2 85%, PLACED PT ON HER SIDE, SPO2 91%. ENCOURAGED PRONING, PATIENT UNABLE TO TOLERATE LAYING ON STOMACH, BUT ABLE TO LAY ON HER SIDES.
[2020-01-10 08:00] VITALS: BP 110/51
[2020-01-10] MEDS: METOPROLOL SUCCINATE XL 50 MG TAB PO SCH (10:00)
[2020-01-10] MEDS: DexAMETHasone SOD PHOS 10MG/1ML VIAL INJ IV SCH (10:53)
[2020-01-10] MEDS: ZINC SULFATE 220mg CAP or TAB PO SCH (10:53)
[2020-01-10] MEDS: FUROSEMIDE 40 MG/4 ML VIAL IV SCH (10:53)
[2020-01-10] MEDS: ASCORBIC ACID 1,000 MG TAB PO SCH (10:54)
[2020-01-10] MEDS: CHOLECALCIFEROL (VITD3) 2,000 UNIT CAP PO SCH (10:54)
[2020-01-10] MEDS: ENOXAPARIN SOD 40 MG/0.4 ML SYRINGE SC SCH ×2 (10:55→21:53)
[2020-01-10] MEDS: ACETAMINOPHEN 500 MG TAB PO PRN ×2 (10:55→21:53)
[2020-01-10] MEDS: INSULIN 70/30 1unit/0.01ml Susp (100units/ml) SC SCH ×2 (11:02→21:49)
--- NOTE | 2020-01-10 11:12 | NUR ---
patient insulin held, 70/30 insulin just given.
[2020-01-10 12:00] VITALS: BP 116/52
--- NOTE | 2020-01-10 12:40 | NUR ---
Nutrition Followup Note Wt 83.3 kg Pt is positive for COVID, in isolation. Pt is currently on CCHO 60 gm diet, with adequate Po of 75% x 3 per RN doc Est Energy needs: 5502-0595 kcals (17-20 kcal/kgBW), Est Protein needs: 82-90 gms/day (1.0-1.1 gm/kgBW). Will continue to monitor and reassess prn. Labs: GLU 131 H BM: Pt had 1 BM reported on 01/06 per RN note Skin: BS 20 low risk, full details in rn acute care note PES: 1) Obesity aeb BMI of 34.1 kg/m2 r/t energy intake in excess of energy needs 2) Altered nutrition related lab values hyperglycemia, hypocalcemia, hypocalcemia, hypoalbuminemia r/t current/chronic medical condition Comments Will continue to monitor PO intake, skin status, pertinent labs and weight trends. Will f/u in 3-5 days Rec: 1) refer pt to OPD on D/C. 2) Continue current plan of care
[2020-01-10 16:56] VITALS: BP 118/55
--- NOTE | 2020-01-10 19:30 | NUR ---
Opening Shift Note Assumed care of patient, awake and alert. No S/S of distress/SOB or pain. Instructed on POC and to call for assist PRN, will continue to monitor for changes Q1hr and PRN. Bed placed in lowest position, bed alarm turned and call ligt within reach.
--- NOTE | 2020-01-10 20:00 | NUR ---
Patient is incontinent of urine. Assisted patient with dmitri changed.
[2020-01-10] MEDS ORDERED: InsuLIN REG 1unit/0.01ml Soln (100units/ml) SC SCH (22:00)
--- NOTE | 2020-01-11 04:55 | NUR ---
Complete bed changed Patient soaked bed with urine. Complete bed changed done and given patient a partial bed bath. Patient is resting back in bed comfortably. Denies pain at this time
[2020-01-11 06:00] VITALS: BP 114/51
[2020-01-11] MEDS: ALBUTEROL SULF HFA 90MCG INH 200DOSE IN SCH ×2 (06:06→14:00)
[2020-01-11] MEDS: BUDESONIDE (INHALATION) 180 MCG IH IN SCH (06:06)
[2020-01-11] MEDS: InsuLIN REG 1unit/0.01ml Soln (100units/ml) SC SCH ×4 (06:40→21:26)
[2020-01-11] MEDS: ACCU-CHEK COMFORT CURVE STRIP VI SCH ×4 (06:40→21:08)
--- NOTE | 2020-01-11 07:00 | NUR ---
notified [facility] charger operator helper of negative covid. Per charger operator helper wait for Dr jones to [place] for transfer.
[2020-01-11 08:00] VITALS: BP 116/69
[2020-01-11 08:05] LABS: Basophils # (auto) 0 10 ^3/uL (0-0.2); Basophils % (auto) 0.1 % (0.0-2.0); Eosinophils # (auto) 0 10 ^3/uL (0-0.8); Eosinophils % (auto) 0.1 % (0.0-7.0); Hematocrit 37.9 % (36.0-46.0); Hemoglobin 12.1 g/dL (12.2-16.2); Lymphocytes # (auto) 1.3 10 ^3/uL (0.4-5.4); Lymphocytes % (auto) 9.5 % (10.0-50.0); Mean Corpuscular Hemoglobin 29.2 pg (28.0-32.0); Mean Corpuscular Volume 91.3 fL (80.0-100.0); Monocytes # (auto) 0.8 10 ^3/uL (0-1.3); Monocytes % (auto) 5.9 % (0.0-12.0); Neutrophils # (auto) 11.7 10 ^3/uL (1.6-8.6); Neutrophils % (auto) 84.4 % (37.0-80.0); Platelet Count (auto) 352 10^3/uL (140-450); Red Blood Cells 4.15 10^6/uL (4.0-5.20); Red Cell Distribution Width 14.5 % (11.8-14.3); White Blood Cell 13.9 10^3/uL (4.4-10.8)
[2020-01-11 08:21] LABS: Potassium 4.3 mmol/L (3.5-5.1)
--- NOTE | 2020-01-11 08:30 | NUR ---
Dr jones states ok to transfer patient to med/surg [facility], non-covid unit.
[2020-01-11 08:32] LABS: Albumin 2.6 g/dL (3.4-5.0); BUN/Creatinine Ratio 33.8; Bilirubin, Total 0.5 mg/dL (0.2-1.0); Calcium 8.4 mg/dL (8.5-10.1); Magnesium 2.6 mg/dL (1.6-2.6); Phosphorus 3.4 mg/dL (2.5-4.90); Total Protein 6.5 g/dL (6.4-8.2)
[2020-01-11] MEDS: METOPROLOL SUCCINATE XL 50 MG TAB PO SCH (10:00)
[2020-01-11] MEDS: INSULIN 70/30 1unit/0.01ml Susp (100units/ml) SC SCH ×2 (10:00→21:26)
[2020-01-11] MEDS: FAMOTIDINE 20 MG TAB PO SCH (10:17)
[2020-01-11] MEDS: DexAMETHasone SOD PHOS 10MG/1ML VIAL INJ IV SCH (10:17)
[2020-01-11] MEDS: FUROSEMIDE 40 MG/4 ML VIAL IV SCH (10:18)
[2020-01-11] MEDS: ENOXAPARIN SOD 40 MG/0.4 ML SYRINGE SC SCH ×2 (10:18→21:08)
[2020-01-11] MEDS: ASCORBIC ACID 1,000 MG TAB PO SCH (10:18)
[2020-01-11] MEDS: ZINC SULFATE 220mg CAP or TAB PO SCH (10:18)
[2020-01-11] MEDS: CHOLECALCIFEROL (VITD3) 2,000 UNIT CAP PO SCH (10:18)
--- NOTE | 2020-01-11 10:30 | NUR ---
Discussed with patient the use of diapers and that it is against our policy, however patient stated she would rather use the adult diapers then keep wetting the bed and she cant always make it to the commode in time without peeing on the bed and floor. patient understands risks of using diapers and will continue to use,.
--- NOTE | 2020-01-11 10:36 | NUR ---
attempted to give report, will call back.
--- NOTE | 2020-01-11 10:45 | NUR ---
received call back for report, report given. Patient roommate is getting piccline/midline at this time, will move EMMA.
--- NOTE | 2020-01-11 11:13 | NUR ---
Patient insulin held, patient just received 70/30 insulin.
--- NOTE | 2020-01-11 11:30 | NUR ---
Patient taken [facility] by [facility], patient sent with home o2, belongings and had no home medications here in [facility].
[2020-01-11 12:00] VITALS: BP 128/62
--- NOTE | 2020-01-11 12:00 | NUR ---
Telemetry Transfer from [facility] Unit Room 248 USAMA LOVE admitted to Telemetry unit after SBAR received. Patient oriented to Lis Nielson, primary RN, unit, room, bed, and unit policies regarding patient care and visiting hours. Patient now on continuous telemetry monitoring, tele box # 3 and telemetry reading on arrival to unit is 67 NSR. Patient placed on bedside oxygen 15 LPM oxymizer and encouraged to call if they need something. All questions and concerns addressed, patient verbalized understanding. She is A & O x4, no s/s of distress. POC discussed. Will continue to monitor.
--- NOTE | 2020-01-11 14:30 | NUR ---
Patient tele box transferred form #3 to #71.
--- NOTE | 2020-01-11 16:34 | NUR ---
RT UNAVAILABLE FOR MDI. HR 64, SPO2 95% PT ALERT , ORIIENTED AND NOT IN ANY RESPIRATORY DISTRESS
[2020-01-11 17:00] VITALS: BP 125/72
[2020-01-11 21:00] VITALS: BP 115/62
[2020-01-11] MEDS ORDERED: IPRATROPIUM BROM 0.5 MG/2.5ML INH SOL ONE (23:27)
[2020-01-11] MEDS ORDERED: ALBUTEROL SULF 2.5 MG/0.5ML(0.5%) NEB SOLN ONE (23:27)
[2020-01-11] MEDS: ALBUTEROL SULF 2.5 MG/0.5ML(0.5%) NEB SOLN NEB SCH (23:48)
[2020-01-11] MEDS: IPRATROPIUM BROM 0.5 MG/2.5ML INH SOL NEB SCH (23:48)
[2020-01-12 05:00] VITALS: BP 124/55
[2020-01-12] MEDS: InsuLIN REG 1unit/0.01ml Soln (100units/ml) SC SCH ×4 (05:46→22:40)
[2020-01-12] MEDS: ACCU-CHEK COMFORT CURVE STRIP VI SCH ×4 (05:46→22:39)
[2020-01-12] MEDS: BUDESONIDE (INHALATION) 0.5 MG/2 ML NEB NEB SCH (07:16)
[2020-01-12] MEDS: ALBUTEROL SULF 2.5 MG/0.5ML(0.5%) NEB SOLN NEB SCH ×2 (07:16→13:59)
[2020-01-12] MEDS: IPRATROPIUM BROM 0.5 MG/2.5ML INH SOL NEB SCH ×2 (07:16→13:59)
[2020-01-12] MEDS: DexAMETHasone SOD PHOS 10MG/1ML VIAL INJ IV SCH (07:32)
[2020-01-12] MEDS: CHOLECALCIFEROL (VITD3) 2,000 UNIT CAP PO SCH (07:33)
[2020-01-12] MEDS: ZINC SULFATE 220mg CAP or TAB PO SCH (07:33)
[2020-01-12] MEDS: ASCORBIC ACID 1,000 MG TAB PO SCH (07:33)
--- NOTE | 2020-01-12 07:52 | NUR ---
Respiratory note: SWITCHED PT TO 15LNRB AT THIS TIME
--- NOTE | 2020-01-12 08:00 | NUR ---
Opening Note Assumed care of patient, she is A & O x4, no s/s of distress, patient is sitting up ready to eat breakfast, blood glucose this morning was 70, will continue to monitor. Patient was just placed on 15 L non rebreather by RT to give her nares a rest from the 15L oxymizer. Will continue to monitor. Educated patient to call for increasing shortness of breath, lightheadedness or dizziness and s/s of low blood sugar. POC discussed, bed is in lowest locked position, call light within reach. Educated patient to call for assistance to bedside commode, to prevent falls, she agrees.
[2020-01-12] MEDS ORDERED: DEXTROSE (50%) 50ML SYRG IV PRN (10:30)
[2020-01-12] MEDS: FUROSEMIDE 40 MG/4 ML VIAL IV SCH (10:30)
[2020-01-12] MEDS: METOPROLOL SUCCINATE XL 50 MG TAB PO SCH (10:31)
[2020-01-12] MEDS: ENOXAPARIN SOD 40 MG/0.4 ML SYRINGE SC SCH ×2 (10:32→22:39)
[2020-01-12] MEDS: DOCUSATE SOD 100 MG CAP PO PRN (18:20)
[2020-01-13] MEDS: ALBUTEROL SULF 2.5 MG/0.5ML(0.5%) NEB SOLN NEB SCH ×4 (00:05→19:52)
[2020-01-13] MEDS: BUDESONIDE (INHALATION) 0.5 MG/2 ML NEB NEB SCH ×3 (00:05→19:52)
[2020-01-13] MEDS: IPRATROPIUM BROM 0.5 MG/2.5ML INH SOL NEB SCH ×4 (00:05→19:52)
[2020-01-13 01:04] VITALS: BP 115/66
[2020-01-13] MEDS: ACETAMINOPHEN 500 MG TAB PO PRN ×4 (01:13→23:59)
[2020-01-13 05:44] VITALS: BP 93/42
[2020-01-13] MEDS: ACCU-CHEK COMFORT CURVE STRIP VI SCH ×4 (07:07→22:00)
[2020-01-13] MEDS: InsuLIN REG 1unit/0.01ml Soln (100units/ml) SC SCH ×4 (07:12→22:20)
--- NOTE | 2020-01-13 07:30 | NUR ---
Opening Shift Note Upon entering room patient awake and alert. No signs of distress or pain noted. Respirations even and unlabored. Patient relaxed and calm. Instructed patient on the use of the call light PRN. Call light within reach. Bed locked and in lowest position with two side rails up. Will continue to monitor for changes.
--- NOTE | 2020-01-13 07:30 | NUR ---
DR. ALBRECHT AT BEDSIDE
[2020-01-13 09:00] VITALS: BP 124/58
[2020-01-13] MEDS: FAMOTIDINE 20 MG TAB PO SCH (09:25)
[2020-01-13] MEDS: METOPROLOL SUCCINATE XL 50 MG TAB PO SCH (09:26)
[2020-01-13] MEDS: FUROSEMIDE 40 MG/4 ML VIAL IV SCH (09:26)
[2020-01-13] MEDS: ENOXAPARIN SOD 40 MG/0.4 ML SYRINGE SC SCH ×2 (09:28→22:16)
--- NOTE | 2020-01-13 09:45 | NUR ---
PT IS CONFUSED AND UNABLE TO SAFELY TRANSFER OUT OF BED TO CHAIR.
--- NOTE | 2020-01-13 10:00 | NUR ---
PATIENT OXYGEN TITRATED FROM 15L TO 10L VIA OXYMIZER 02 SATURATION 95-98% AT THIS TIME. WILL CONTINUE TO MONITOR .
--- NOTE | 2020-01-13 11:44 | NUR ---
Nutrition Followup Note Wt 81.5 kg Pt is now covid negative, pt transferred to [facility]. Pt was sleeping with no family at bedside at time of rounds. Pt is with a CCHO 60g diet with a good appetite aeb pt with 84% avg of po intake x 3 days per RN note. Est Energy needs: 3548-2329 kcals (17-20 kcal/kgBW), Est Protein needs: 82-90 gms/day (1.0-1.1 gm/kgBW). Will continue to monitor and reassess prn. Labs: GLUC 141H, BUn 25H, Alb 2.6L, Ca 8.4L BM: Pt had 2 BMs on 01/09 per RN note Skin: BS 20 low risk, full details in school childcare attendant note PES: 1) Obesity aeb BMI of 34.1 kg/m2 r/t energy intake in excess of energy needs 2) Altered nutrition related lab values hyperglycemia, hypocalcemia, hypocalcemia, hypoalbuminemia r/t current/chronic medical condition Comments Will continue to monitor PO intake, skin status, pertinent labs and weight trends. Will f/u in 3-5 days Rec: 1) refer pt to OPD on D/C. 2) Continue current plan of care
[2020-01-13 13:00] VITALS: BP 98/51
[2020-01-13] MEDS: DOCUSATE SOD 100 MG CAP PO PRN (14:31)
[2020-01-13 17:00] VITALS: BP 110/57
--- NOTE | 2020-01-13 17:00 | NUR ---
PATIENT OXYGEN TITRATED FROM 10L TO 8L VIA OXYMIZER 02 SATURATION 94-95% AT THIS TIME. WILL CONTINUE TO MONITOR .
--- NOTE | 2020-01-13 18:56 | NUR ---
PATIENT ROUNDS PATIENT SITTING UP IN BED. NO S/S OF DISTRESS. PATIENT IS CURRENTLY ON 8L O2 VIA OXYMIZER, O2 SATURATION 94-96%, HR 72, RR 16. WILL ENDORSE CARE TO CUTTER BARREL DRUM RN.
--- NOTE | 2020-01-13 19:30 | NUR ---
Opening Shift Note Assumed care of patient, awake and alert. No S/S of distress/SOB or pain. Insructed on POC and to callfor assist PRN, will continue to monitor for changes.
[2020-01-13 23:16] VITALS: BP 116/56
[2020-01-14 05:15] VITALS: BP 134/73
[2020-01-14] MEDS: ALBUTEROL SULF 2.5 MG/0.5ML(0.5%) NEB SOLN NEB SCH ×3 (06:00→22:00)
[2020-01-14] MEDS: IPRATROPIUM BROM 0.5 MG/2.5ML INH SOL NEB SCH ×3 (06:00→22:00)
[2020-01-14] MEDS: ACCU-CHEK COMFORT CURVE STRIP VI SCH ×4 (06:33→21:34)
[2020-01-14] MEDS: InsuLIN REG 1unit/0.01ml Soln (100units/ml) SC SCH ×4 (06:36→21:32)
--- NOTE | 2020-01-14 07:25 | NUR ---
Opening Shift Note Assumed care of patient, awake and alert. No S/S of distress, SOB, patient denies pain at this time. Respirations even and unlabored. Patient is on 8L O2 via Oxymizer, O2 sat 96-97%. Titrated down to 6L at this time, patient saturation at 96%, HR 72. Patient instructed to call if oxygen drops below 90%. Updated on POC and instructed to call for assistance as needed, patient verbalized understanding. Bed locked in lowest position, side rails up x2, call light within reach, bed alarm on with safety precautions in place. Will continue to monitor for changes.
[2020-01-14] MEDS: METOPROLOL SUCCINATE XL 50 MG TAB PO SCH (08:57)
[2020-01-14] MEDS: ENOXAPARIN SOD 40 MG/0.4 ML SYRINGE SC SCH ×2 (08:57→21:21)
[2020-01-14] MEDS: FUROSEMIDE 40 MG/4 ML VIAL IV SCH (08:57)
[2020-01-14] MEDS: ACETAMINOPHEN 500 MG TAB PO PRN ×2 (08:59→18:37)
[2020-01-14 09:00] VITALS: BP 114/53
[2020-01-14] MEDS: BUDESONIDE (INHALATION) 0.5 MG/2 ML NEB NEB SCH ×2 (10:00→22:00)
[2020-01-14 11:54] LABS: Basophils # (auto) 0.1 10 ^3/uL (0-0.2); Basophils % (auto) 0.4 % (0.0-2.0); Eosinophils # (auto) 0.5 10 ^3/uL (0-0.8); Hematocrit 39.6 % (36.0-46.0); Hemoglobin 12.9 g/dL (12.2-16.2); Lymphocytes # (auto) 1.7 10 ^3/uL (0.4-5.4); Mean Corpuscular Hemoglobin 29.8 pg (28.0-32.0); Mean Corpuscular Hgb Conc. 32.5 g/dL (32.0-36.0); Mean Corpuscular Volume 91.9 fL (80.0-100.0); Monocytes # (auto) 0.8 10 ^3/uL (0-1.3); Monocytes % (auto) 5.1 % (0.0-12.0); Neutrophils # (auto) 12.3 10 ^3/uL (1.6-8.6); Neutrophils % (auto) 80.5 % (37.0-80.0); Platelet Count (auto) 272 10^3/uL (140-450); Red Blood Cells 4.31 10^6/uL (4.0-5.20); White Blood Cell 15.3 10^3/uL (4.4-10.8)
[2020-01-14 12:12] LABS: Albumin 2.7 g/dL (3.4-5.0); Calcium 8.4 mg/dL (8.5-10.1); Magnesium 2.2 mg/dL (1.6-2.6); Potassium 3.3 mmol/L (3.5-5.1)
[2020-01-14 12:15] LABS: BUN/Creatinine Ratio 22.1; Bilirubin, Total 0.8 mg/dL (0.2-1.0); Total Protein 7.2 g/dL (6.4-8.2)
[2020-01-14 13:00] VITALS: BP 97/42
[2020-01-14] MEDS ORDERED: POTASSIUM CHL 20 Meq TABLET PO ONE (15:45)
[2020-01-14 17:00] VITALS: BP 119/57
[2020-01-14] MEDS: DOCUSATE SOD 100 MG CAP PO PRN (21:18)
[2020-01-14 22:00] VITALS: BP 122/59
[2020-01-15] MEDS: ACETAMINOPHEN 500 MG TAB PO PRN ×3 (03:14→21:21)
[2020-01-15] MEDS: InsuLIN REG 1unit/0.01ml Soln (100units/ml) SC SCH ×4 (06:36→22:16)
[2020-01-15] MEDS: ACCU-CHEK COMFORT CURVE STRIP VI SCH ×4 (06:37→22:17)
[2020-01-15] MEDS: IPRATROPIUM BROM 0.5 MG/2.5ML INH SOL NEB SCH ×3 (06:40→23:00)
[2020-01-15] MEDS: ALBUTEROL SULF 2.5 MG/0.5ML(0.5%) NEB SOLN NEB SCH ×3 (06:40→23:00)
--- NOTE | 2020-01-15 07:16 | NUR ---
OPENING SHIFT NOTE Assumed care of patient from assistant shift supervisor RN. Patient is alert and oriented x4, Patient c/o shortness of breath on exertion. no signs of distress noted. She is currently on oxygen at 5L/min via Oxymizer, saturation 92%. Bed is locked, in the lowest position, side rails up x2 and call light is in reach. She was encouraged to call for assistance as needed.
[2020-01-15 08:29] LABS: BUN/Creatinine Ratio 26.3; Calcium 8.5 mg/dL (8.5-10.1); Magnesium 2.1 mg/dL (1.6-2.6); Phosphorus 2.3 mg/dL (2.5-4.90)
[2020-01-15 09:00] VITALS: BP 131/72
[2020-01-15] MEDS: FAMOTIDINE 20 MG TAB PO SCH (10:10)
[2020-01-15] MEDS: METOPROLOL SUCCINATE XL 50 MG TAB PO SCH (10:12)
[2020-01-15] MEDS: ENOXAPARIN SOD 40 MG/0.4 ML SYRINGE SC SCH ×2 (10:13→21:20)
[2020-01-15] MEDS: FUROSEMIDE 40 MG/4 ML VIAL IV SCH (10:14)
[2020-01-15 13:00] VITALS: BP 119/58
[2020-01-15] MEDS ORDERED: SODIUM PHOSPHATES 20 MEQ in SODIUM CHL 0.9% 100 ML IV ONE (16:00)
[2020-01-15] MEDS: BUDESONIDE (INHALATION) 0.5 MG/2 ML NEB NEB SCH ×2 (16:30→23:00)
--- NOTE | 2020-01-15 16:33 | NUR ---
Respiratory note: 10:00AM AND 14:00AM ALBUTEROL MED NEB TX NOT ADMINISTERED DUE TO THERAPIST UNAVAILABLE. RN AWARE TO HAVE RT PAGED IF NEEDED.
--- NOTE | 2020-01-15 16:36 | NUR ---
CALL FROM FAMILY Spoke to patient's daughter Savanna. After verification of password she was updated on the patient status and the plan of care. All questions answered.
[2020-01-15 17:00] VITALS: BP 105/53
--- NOTE | 2020-01-15 20:00 | NUR ---
open note assumed care of pt. upon entering room pt eyes closed, breathing is even and unlabored on 5L oxymizer. no s/s distress noted. pt bed locked, low and 2x rails up. call light in reach. this nurse to round q1hr and prn. pt will update pt on plan of care at later time.
[2020-01-15 22:30] VITALS: BP 117/59
[2020-01-16 05:31] VITALS: BP 116/56
[2020-01-16] MEDS: ACCU-CHEK COMFORT CURVE STRIP VI SCH ×4 (06:36→21:47)
[2020-01-16] MEDS: InsuLIN REG 1unit/0.01ml Soln (100units/ml) SC SCH ×4 (06:43→21:46)
--- NOTE | 2020-01-16 07:00 | NUR ---
OPENING SHIFT NOTE Assumed care of patient from operation shift supervisor RN. Patient is alert and oriented x4, no signs of distress noted, denies pain. She was updated on the plan of care and verbalized understanding. She is on oxygen at 5L/min via Oxymizer, saturation is 95%. Bed is locked, in the lowest position, side rails are up x2 and call light is in reach. She was encouraged to call for assistance as needed.
[2020-01-16] MEDS: ALBUTEROL SULF 2.5 MG/0.5ML(0.5%) NEB SOLN NEB SCH ×3 (07:19→20:27)
[2020-01-16] MEDS: BUDESONIDE (INHALATION) 0.5 MG/2 ML NEB NEB SCH ×2 (07:19→20:27)
[2020-01-16] MEDS: IPRATROPIUM BROM 0.5 MG/2.5ML INH SOL NEB SCH ×3 (07:19→20:27)
--- NOTE | 2020-01-16 07:19 | NUR ---
Respiratory note: PT REFUSED PULMICORT MED NEB TX, SHE STATES DOES NOT LIKE WHAT IS DOES TO HER MOUTH.
[2020-01-16 08:00] VITALS: BP 108/59
--- NOTE | 2020-01-16 09:16 | NUR ---
AMBROCIO AT BEDSIDE Updated on the patient status, Plan of care was discussed with the patient and she verbalized understanding. New orders for developmental services worker consult for PT and change from oxymizer to nasal cannula. Orders read back and verified.
--- NOTE | 2020-01-16 09:21 | NUR ---
SPOKE TO FAMILY Spoke to patient's daughter Savanna. After verification of password she was updated on the patient status and the plan of care. All questions answered.
[2020-01-16] MEDS: METOPROLOL SUCCINATE XL 50 MG TAB PO SCH (09:38)
[2020-01-16] MEDS: ENOXAPARIN SOD 40 MG/0.4 ML SYRINGE SC SCH ×2 (09:38→21:47)
[2020-01-16] MEDS: FUROSEMIDE 40 MG/4 ML VIAL IV SCH (09:38)
[2020-01-16] MEDS: ACETAMINOPHEN 500 MG TAB PO PRN ×2 (10:30→18:35)
[2020-01-16] MEDS: DOCUSATE SOD 100 MG CAP PO PRN (10:30)
--- NOTE | 2020-01-16 11:05 | NUR ---
Nutrition Followup Note Wt 81.4 kg Pt was with RN receiving attention at time of rounds. Pt is with no new distress per MD note. Pt is with a CCHO 60g diet with a good appetite aeb pt po intake of 75-100% x 3 days per Rn note. Est Energy needs: 7214-6686 kcals (17-20 kcal/kgBW), Est Protein needs: 82-90 gms/day (1.0-1.1 gm/kgBW). Will continue to monitor and reassess prn. Labs: Na 134L, BUN 20H, GLUC 183H, Alb 2.7L BM: Pt had 1 BM on 01/13 per RN note Skin: BS 20 low risk, full details in patient care note PES: 1) Obesity aeb BMI of 34.1 kg/m2 r/t energy intake in excess of energy needs 2) Altered nutrition related lab values hyperglycemia, hypocalcemia, hypocalcemia, hypoalbuminemia r/t current/chronic medical condition Comments Will continue to monitor PO intake, skin status, pertinent labs and weight trends. Will f/u in 3-5 days Rec: 1) refer pt to [facility] on D/C. 2) Continue current plan of care
[2020-01-16 12:00] VITALS: BP 100/57
[2020-01-16 16:00] VITALS: BP 110/51
--- NOTE | 2020-01-16 19:30 | NUR ---
Opening Shift Note Assumed care of patient, awake and alert. No S/S of distress/SOB or pain. Instructed on POC and to call for assist PRN. Bed in lowest locked position, call light within reach, side rails up x2, fall precautions in place. Will continue to monitor for changes Q1hr and PRN.
[2020-01-16 23:29] VITALS: BP 110/48
[2020-01-17] MEDS: ACETAMINOPHEN 500 MG TAB PO PRN ×3 (03:11→20:25)
[2020-01-17 06:24] VITALS: BP 110/62
[2020-01-17] MEDS: ACCU-CHEK COMFORT CURVE STRIP VI SCH ×4 (06:39→22:09)
[2020-01-17] MEDS: InsuLIN REG 1unit/0.01ml Soln (100units/ml) SC SCH ×4 (06:42→22:10)
[2020-01-17] MEDS: IPRATROPIUM BROM 0.5 MG/2.5ML INH SOL NEB SCH ×3 (06:59→21:40)
[2020-01-17] MEDS: BUDESONIDE (INHALATION) 0.5 MG/2 ML NEB NEB SCH ×2 (07:00→21:40)
[2020-01-17] MEDS: ALBUTEROL SULF 2.5 MG/0.5ML(0.5%) NEB SOLN NEB SCH ×3 (07:00→21:40)
[2020-01-17 08:12] LABS: Basophils # (auto) 0 10 ^3/uL (0-0.2); Basophils % (auto) 0.4 % (0.0-2.0); Eosinophils # (auto) 0.8 10 ^3/uL (0-0.8); Eosinophils % (auto) 7.4 % (0.0-7.0); Hematocrit 35.8 % (36.0-46.0); Hemoglobin 11.7 g/dL (12.2-16.2); Lymphocytes # (auto) 1.4 10 ^3/uL (0.4-5.4); Lymphocytes % (auto) 14.3 % (10.0-50.0); Mean Corpuscular Hemoglobin 29.7 pg (28.0-32.0); Mean Corpuscular Hgb Conc. 32.6 g/dL (32.0-36.0); Mean Corpuscular Volume 91.2 fL (80.0-100.0); Monocytes # (auto) 0.7 10 ^3/uL (0-1.3); Monocytes % (auto) 7.2 % (0.0-12.0); Neutrophils # (auto) 7.2 10 ^3/uL (1.6-8.6); Neutrophils % (auto) 70.7 % (37.0-80.0); Platelet Count (auto) 235 10^3/uL (140-450); Red Blood Cells 3.93 10^6/uL (4.0-5.20); Red Cell Distribution Width 14.3 % (11.8-14.3); White Blood Cell 10.1 10^3/uL (4.4-10.8)
[2020-01-17 08:30] LABS: Albumin 2.4 g/dL (3.4-5.0); Calcium 8.8 mg/dL (8.5-10.1); Potassium 3.8 mmol/L (3.5-5.1)
[2020-01-17 08:33] LABS: BUN/Creatinine Ratio 17.3; Bilirubin, Total 0.7 mg/dL (0.2-1.0); Total Protein 7.4 g/dL (6.4-8.2)
[2020-01-17 09:00] VITALS: BP 118/57
[2020-01-17] MEDS: FAMOTIDINE 20 MG TAB PO SCH (09:50)
[2020-01-17] MEDS: FUROSEMIDE 40 MG/4 ML VIAL IV SCH (10:21)
[2020-01-17] MEDS: METOPROLOL SUCCINATE XL 50 MG TAB PO SCH (10:22)
[2020-01-17] MEDS: ENOXAPARIN SOD 40 MG/0.4 ML SYRINGE SC SCH ×2 (10:23→22:09)
[2020-01-17 14:00] VITALS: BP 107/53
--- NOTE | 2020-01-17 14:18 | NUR ---
D/C Planning Received a call from Sanchez with [facility] advising me they will deliver bedside commode to patient home. Informed Sanchez patient will be staying with daughter Savanna in [place]. Per Sanchez with [facility] she will contact Savanna for address information and time of delivery. Contact Savanna advising her to bring portable oxygen to hospital upon d/c day. Per Savanna she will bring portable oxygen to hospital and would like bedside nurse to contact her with a time of discharge since she lives in [place]. Informed GUSTAVO Lees.
[2020-01-17 17:00] VITALS: BP 124/66
[2020-01-17] MEDS: DOCUSATE SOD 100 MG CAP PO PRN (20:25)
[2020-01-17 22:00] VITALS: BP 107/52
[2020-01-18 05:00] VITALS: BP 120/65
[2020-01-18] MEDS: InsuLIN REG 1unit/0.01ml Soln (100units/ml) SC SCH ×4 (06:37→21:27)
[2020-01-18] MEDS: ACCU-CHEK COMFORT CURVE STRIP VI SCH ×4 (06:37→21:28)
[2020-01-18] MEDS: IPRATROPIUM BROM 0.5 MG/2.5ML INH SOL NEB SCH ×3 (07:02→20:31)
[2020-01-18] MEDS: BUDESONIDE (INHALATION) 0.5 MG/2 ML NEB NEB SCH ×2 (07:02→20:31)
[2020-01-18] MEDS: ALBUTEROL SULF 2.5 MG/0.5ML(0.5%) NEB SOLN NEB SCH ×3 (07:02→20:31)
[2020-01-18 08:30] VITALS: BP 107/54
[2020-01-18] MEDS: ACETAMINOPHEN 500 MG TAB PO PRN ×2 (10:08→18:13)
[2020-01-18] MEDS: FUROSEMIDE 40 MG/4 ML VIAL IV SCH (10:11)
[2020-01-18] MEDS: METOPROLOL SUCCINATE XL 50 MG TAB PO SCH (10:12)
[2020-01-18] MEDS: DOCUSATE SOD 100 MG CAP PO PRN (10:16)
[2020-01-18 12:00] VITALS: BP 115/48
[2020-01-18] MEDS: ENOXAPARIN SOD 40 MG/0.4 ML SYRINGE SC SCH ×2 (13:38→21:29)
[2020-01-18 16:00] VITALS: BP 112/65
--- NOTE | 2020-01-18 16:00 | NUR ---
Charge Nurse Linda advised me patient daughter Savanna informed her patient does not have a walke. Placed called to Savanna advising her when I first spoke to her she had mentioned patient had a walker. Per Savanna she got confused and patient has a cane for home use not a walker. Placed call [facility], spoke to Jazmin advising her patient will also need the walker that was requested on MD order. Per Jazmin with [facility] walker will be added and they will attempt to contact daughter again for delivery time. Placed called to patient daughter Savanna advising her the walker will be added and they will be calling her. Informed CLAYTON PIERCE AND CHARGE NURSE LINDA.
--- NOTE | 2020-01-18 17:55 | NUR ---
Contacted daughter, Savanna, regarding HH order for patient and disscharge destination. Per Savanna, pt will be going home with her [place] [id number], [place], [id number] upon discharge permanently. Discussed with daughter the need to change medical groups to one in the [place] area or disenroll from the Health plan due to [facility] being out of the area. Pt also has [facility]. Provided options and the number to 1800 [employer] to change or disenroll. [facility] , contracted providers, contacted and faxed clinical information but both declined to take the patient. Discussed with [facility] [employer] and group is willing to do a JUSTINE for out of area HH. Obtained names of [facility], [facility], and [facility] health agencies. Contacted [facility] ([phone]) and faxed clinical information requesting review as well as JUSTINE. [facility] is restricted to [place] area. to followup with [facility] at [phone] and [facility] at [phone] for assistance with JUSTINE as well. Daughter states she will be transporting pt home but needs to know the time since she is an hour away.
--- NOTE | 2020-01-18 19:30 | NUR ---
assumed care, pt. awake, no c/o pain, not in distress.
[2020-01-18 21:00] VITALS: BP 98/52
[2020-01-19] MEDS: ACETAMINOPHEN 500 MG TAB PO PRN ×2 (01:23→11:10)
[2020-01-19 05:00] VITALS: BP 121/55
[2020-01-19] MEDS: InsuLIN REG 1unit/0.01ml Soln (100units/ml) SC SCH ×2 (06:22→11:45)
[2020-01-19] MEDS: ACCU-CHEK COMFORT CURVE STRIP VI SCH ×2 (06:23→11:11)
--- NOTE | 2020-01-19 07:06 | NUR ---
OPENING SHIFT NOTE Assumed care of patient from distance learning coordinator RN. Patient is alert and oriented x4, no signs of distress noted, denies pain. She was updated on the plan of care and verbalized understanding. She is on oxygen at 2L/min via nasal cannula, saturation is 93%. Bed is locked, in the lowest position, side rails are up x2 and call light is in reach. She was encouraged to call for assistance as needed.
[2020-01-19] MEDS: IPRATROPIUM BROM 0.5 MG/2.5ML INH SOL NEB SCH ×2 (07:43→14:22)
[2020-01-19] MEDS: ALBUTEROL SULF 2.5 MG/0.5ML(0.5%) NEB SOLN NEB SCH ×2 (07:43→14:22)
[2020-01-19 09:00] VITALS: BP 118/55
[2020-01-19] MEDS ORDERED: METO25TA93 PO (09:03)
[2020-01-19] MEDS: FAMOTIDINE 20 MG TAB PO SCH (09:35)
[2020-01-19] MEDS: FUROSEMIDE 40 MG/4 ML VIAL IV SCH (09:35)
[2020-01-19] MEDS: ENOXAPARIN SOD 40 MG/0.4 ML SYRINGE SC SCH (09:36)
[2020-01-19] MEDS: METOPROLOL SUCCINATE XL 50 MG TAB PO SCH (09:36)
--- NOTE | 2020-01-19 11:12 | NUR ---
CALLED FAMILY to update her on the plan of care. Daughter asking about inhaler for home, will call pharmacy and
--- NOTE | 2020-01-19 11:17 | NUR ---
PAGED ALBRECHT regarding inhaler prescription for patient, awaiting call back.
[2020-01-19] MEDS: BUDESONIDE (INHALATION) 0.5 MG/2 ML NEB NEB SCH (11:42)
[2020-01-19 13:00] VITALS: BP 118/60
--- NOTE | 2020-01-19 14:26 | NUR ---
MESSAGE LEFT FOR YESY REPORT WRITER. following up on patient home health, awaiting call back.
--- NOTE | 2020-01-19 14:42 | NUR ---
D/C Planning Following up on the three home health agencies that where faxed yesterday from [facility] for a review on an JUSTINE. [facility] is not contracted with [facility] and they will not be able to do an JUSTINE. [facility] is unable to do an JUSTINE at this time. [facility] is only accepting Medicare patients. Informed RN Ginger RAMIREZ she spoke to patient daughter on Friday in regards of possible changing health plan or dis-enrolling and provided the MEDICARE phone number.
[2020-01-19 14:45] VITALS: BP 118/60
--- NOTE | 2020-01-19 15:29 | NUR ---
discharge Discharge instructions given as ordered. Encourage to follow up with PMD as instructed. All questions and concerns addressed. Patient verbalized understanding. Medication reconciliation form completed and copy given to patient. IV removed with catheter intact, pressure dressing applied, Telemetry unit returned to ICU. Patient taken to vehicle via wheelchair with all personal belongings and portable oxygen, accompanied by staff. No distress noted at time of departure.
--- NOTE | 2020-01-20 12:26 | NUR ---
1230 01/20/20 - Contacted daughter Savanna at [phone] regarding home health services, I informed Savanna that we have not been able to find an accepting home health agency to include an agency willing to do a Letter of Agreement due to patient (her mom) moving to the [facility] permanently. Savanna stated she will be switching her mom's insurance by the first of the new year. Savanna also stated she understood all information discussed
== END 2020-01-19 16:32 | disposition home or self-care (01) | DRG 871 ==
LOC: ER 13:19 → TELE 17:39 → TELE-E-ADS 20:53 → TELE-EAST 12-28 20:31 → TELE-WESTW 01-11 11:59
PROVIDERS: ADMIT Nurse Practitioner Acute Care; ATTEND Internal Medicine
PROC: XW033E5 Introduction of Remdesivir Anti-infective into Peripheral Vein, Percutaneous Approach, New Technology Group 5 (ICD-10-PCS; 2019-12-31)
PROC: XW13325 Transfusion of Convalescent Plasma (Nonautologous) into Peripheral Vein, Percutaneous Approach, New Technology Group 5 (ICD-10-PCS; principal; 2020-01-01)
DX: A41.89 Other specified sepsis (principal); U07.1 COVID-19; J12.89 Other viral pneumonia; I47.1 Supraventricular tachycardia; E88.09 Other disorders of plasma-protein metabolism, not elsewhere classified; E66.9 Obesity, unspecified; N18.30 Chronic kidney disease, stage 3 unspecified; E11.65 Type 2 diabetes mellitus with hyperglycemia; E78.5 Hyperlipidemia, unspecified; E11.22 Type 2 diabetes mellitus with diabetic chronic kidney disease; F17.210 Nicotine dependence, cigarettes, uncomplicated; I12.9 Hypertensive chronic kidney disease with stage 1 through stage 4 chronic kidney disease, or unspecified chronic kidney disease; I70.0 Atherosclerosis of aorta; Z79.84 Long term (current) use of oral hypoglycemic drugs; Z79.899 Other long term (current) drug therapy; Z82.49 Family history of ischemic heart disease and other diseases of the circulatory system; Z83.3 Family history of diabetes mellitus; Z88.5 Allergy status to narcotic agent; Z88.0 Allergy status to penicillin; Z68.33 Body mass index [BMI] 33.0-33.9, adult
CPT/HCPCS: 36415; 36600; 71045; 80048; 80053; 81001; 82728; 82805; 82962; 83036; 83605; 83615; 83735; 84100; 84443; 85007; 85025; 85027; 85379; 85610; 85730; 86141; 86850; 86900; 86901; 87040; 87426; 87804; 94640; 96365; 97110; 97116; 97163; 97530; G0378; J0153; J1100; J1815; J2405; J3490; J7060

== ENCOUNTER → 2020-06-16 | Outpatient (CLI) | payer OTHER, MEDICAID ==
[~2020-06-16] MED LIST changes: -LEVO-28 PO; -LISIPOW; -LOSA100T25 PO; -METFORMIN; +METO25TA93 PO; -PRED20TA2 PO
[2020-06-16 15:23] LABS: Basophils # (auto) 0.1 10 ^3/uL (0-0.2); Basophils % (auto) 0.6 % (0.0-2.0); Eosinophils # (auto) 0.3 10 ^3/uL (0-0.8); Eosinophils % (auto) 3.5 % (0.0-7.0); Hematocrit 38.9 % (36.0-46.0); Hemoglobin 12.6 g/dL (12.2-16.2); Lymphocytes # (auto) 3.3 10 ^3/uL (0.4-5.4); Lymphocytes % (auto) 35.6 % (10.0-50.0); Mean Corpuscular Hemoglobin 29.1 pg (28.0-32.0); Mean Corpuscular Hgb Conc. 32.5 g/dL (32.0-36.0); Mean Corpuscular Volume 89.7 fL (80.0-100.0); Monocytes # (auto) 0.5 10 ^3/uL (0-1.3); Monocytes % (auto) 5.1 % (0.0-12.0); Neutrophils # (auto) 5.1 10 ^3/uL (1.6-8.6); Neutrophils % (auto) 55.2 % (37.0-80.0); Platelet Count (auto) 282 10^3/uL (140-450); Red Blood Cells 4.33 10^6/uL (4.0-5.20); Red Cell Distribution Width 15.6 % (11.8-14.3); White Blood Cell 9.2 10^3/uL (4.4-10.8)
[2020-06-16 15:48] LABS: INR 1.11 (0.9-1.15)
[2020-06-16 16:53] LABS: Urine Bacteria NONE SEEN /hpf (None Seen); Urine Blood 1+ /uL (Negative); Urine Specific Gravity 1.008 (1.001-1.035); Urine WBC 1 /hpf (0 - 5)
[2020-06-16 17:47] LABS: Albumin 3.7 g/dL (3.4-5.0); Calcium 8.8 mg/dL (8.5-10.1)
[2020-06-16 17:51] LABS: BUN/Creatinine Ratio 24.6; Bilirubin, Total 0.3 mg/dL (0.2-1.0)
[2020-06-16 17:54] LABS: Free T4 (Free Thyroxine) 0.79 ng/dL (0.89-1.76)
== END | disposition home or self-care (01) ==
LOC: LAB 15:01
PROVIDERS: ATTEND Internal Medicine
DX: Z01.812 Encounter for preprocedural laboratory examination (principal); E11.9 Type 2 diabetes mellitus without complications; I10 Essential (primary) hypertension
CPT/HCPCS: 36415; 80053; 81001; 82607; 83036; 84439; 84443; 85025; 85610; 85652

== ENCOUNTER → 2020-09-29 | Outpatient (CLI) | payer MEDICAID, OTHER ==
[2020-09-29 12:00] LABS: Basophils # (auto) 0 10 ^3/uL (0-0.2); Basophils % (auto) 0.5 % (0.0-2.0); Eosinophils # (auto) 0.1 10 ^3/uL (0-0.8); Eosinophils % (auto) 1.7 % (0.0-7.0); Hematocrit 40.3 % (36.0-46.0); Hemoglobin 13.5 g/dL (12.2-16.2); Lymphocytes # (auto) 3.6 10 ^3/uL (0.4-5.4); Lymphocytes % (auto) 43.1 % (10.0-50.0); Mean Corpuscular Hemoglobin 30.4 pg (28.0-32.0); Mean Corpuscular Hgb Conc. 33.4 g/dL (32.0-36.0); Monocytes # (auto) 0.4 10 ^3/uL (0-1.3); Monocytes % (auto) 5.4 % (0.0-12.0); Neutrophils # (auto) 4.1 10 ^3/uL (1.6-8.6); Neutrophils % (auto) 49.3 % (37.0-80.0); Red Blood Cells 4.43 10^6/uL (4.0-5.20); Red Cell Distribution Width 12.8 % (11.8-14.3); White Blood Cell 8.3 10^3/uL (4.4-10.8)
[2020-09-29 12:16] LABS: Urine Bacteria MOD /hpf (None Seen); Urine Blood 1+ /uL (Negative); Urine Specific Gravity 1.013 (1.001-1.035); Urine WBC 33 /hpf (0 - 5); Urine WBC Clumps PRESENT /hpf (None Seen)
[2020-09-29 12:58] LABS: Calcium 9.7 mg/dL (8.5-10.1); Potassium 4.1 mmol/L (3.5-5.1)
[2020-09-29 13:12] LABS: Albumin 3.8 g/dL (3.4-5.0); BUN/Creatinine Ratio 26.9; Bilirubin, Total 0.5 mg/dL (0.2-1.0); Total Protein 8.4 g/dL (6.4-8.2)
== END | disposition home or self-care (01) ==
LOC: LAB 11:31
PROVIDERS: ATTEND Internal Medicine
DX: E11.9 Type 2 diabetes mellitus without complications (principal); I10 Essential (primary) hypertension
CPT/HCPCS: 36415; 80053; 80061; 81001; 82043; 83036; 84439; 84443; 85025; 85652

== ENCOUNTER → 2021-04-17 | Outpatient (CLI) | payer OTHER, MEDICAID ==
[2021-04-17 09:13] LABS: Basophils # (auto) 0 10 ^3/uL (0-0.2); Basophils % (auto) 0.4 % (0.0-2.0); Eosinophils # (auto) 0.2 10 ^3/uL (0-0.8); Eosinophils % (auto) 2.1 % (0.0-7.0); Hematocrit 39.8 % (36.0-46.0); Hemoglobin 13.3 g/dL (12.2-16.2); Lymphocytes # (auto) 2.4 10 ^3/uL (0.4-5.4); Lymphocytes % (auto) 30.3 % (10.0-50.0); Mean Corpuscular Hemoglobin 31.2 pg (28.0-32.0); Mean Corpuscular Hgb Conc. 33.5 g/dL (32.0-36.0); Mean Corpuscular Volume 93.3 fL (80.0-100.0); Monocytes # (auto) 0.4 10 ^3/uL (0-1.3); Monocytes % (auto) 4.5 % (0.0-12.0); Neutrophils % (auto) 62.7 % (37.0-80.0); Nucleated Red Blood Cells % 0.2 %; Red Blood Cells 4.26 10^6/uL (4.0-5.20); Red Cell Distribution Width 12.8 % (11.8-14.3)
[2021-04-17 10:03] LABS: Potassium 4.2 mmol/L (3.5-5.1)
[2021-04-17 10:20] LABS: Albumin 3.9 g/dL (3.4-5.0); BUN/Creatinine Ratio 22.9; Bilirubin, Total 0.4 mg/dL (0.2-1.0); Calcium 8.9 mg/dL (8.5-10.1); Total Protein 8.3 g/dL (6.4-8.2)
== END | disposition home or self-care (01) ==
LOC: LAB 08:21
PROVIDERS: ATTEND Internal Medicine
DX: E11.9 Type 2 diabetes mellitus without complications (principal); I10 Essential (primary) hypertension; E03.9 Hypothyroidism, unspecified
CPT/HCPCS: 36415; 80053; 83036; 84439; 84443; 85025